=== PATIENT | male | born 1955 | race Caucasian/White ===

== ENCOUNTER 2018-03-06 17:23 | Inpatient (IN) | payer OTHER ==
[2018-03-06 18:32] LABS: #Basophils 0.1 thou/uL (0.0-0.2); #Eosinphils 0.2 thou/uL (0.0-0.7); #Lymphocytes 2.1 thou/uL (1.20-3.40); #Monocytes 0.7 thou/uL (0.11-0.59); #Neutrophils 7.8 thou/uL (1.40-6.50); %Basophils 0.5 % (0.0-1.0); %Eosinophils 2.1 % (0.0-10.0); %Lymphocytes 19.3 % (21.0-51.0); %Monocytes 6.3 % (0.0-10.0); %Neutrophils 71.9 % (42.0-75.0); Hemoglobin 15.7 g/dL (14.0-18.0); Mean Corpuscular HGB CONC 32.8 g/dL (32.0-36.0); Mean Corpuscular Volume 88.6 fl (80.0-94.0); Mean Platelet Volume 6.8 fL (7.4-10.4); Platelet Count 327 thou/uL (130-400); RBC Distribution Width 12.3 % (11.5-14.5); Red Blood Cell (RBC) Count 5.42 mill/uL (4.70-6.10); White Blood Cell (WBC) Count 10.9 thou/uL (4.8-10.8)
[2018-03-06 19:19] LABS: ALT (SGPT) 27 U/L (8-55); AST (SGOT) 18 U/L (5-34); Albumin 3.8 g/dL (3.4-4.8); Alkaline Phosphatase 109 U/L (40-150); Anion Gap 10 mmol/L (10-20); BUN (Urea Nitrogen) 27 mg/dL (8.4-25.7); Bilirubin, Total 0.4 mg/dL (0.2-1.2); Calc. Creatinine Clearance 0 mL/min (70-130); Calcium 9.3 mg/dL (7.8-10.44); Carbon Dioxide 25 mmol/L (23-31); Chloride 103 mmol/L (98-107); Estimated GFR-MDRD Greater than 90; Globulin 3.6 g/dL (2.4-3.5); Glucose 200 mg/dL (80-115); Potassium 4.2 mmol/L (3.5-5.1); Protein, Total 7.4 g/dL (5.8-8.1); Sodium 134 mmol/L (136-145)
[2018-03-06 19:23] LABS: Bilirubin Negative (Negative); Blood, Urine Negative (Negative); Clarity CLEAR (Clear); Glucose, Urine (Dipstick) 100 mg/dL (Negative); Leukocyte Small (Negative); Nitrite Negative (Negative); Protein, Urine (Dipstick) Negative (Neg-Trace); Specific Gravity, Urine 1.023 (1.002-1.036); Urobilinogen 0.2 mg/dL (0.2-1.0); pH, Urine 5.5 (5.0-9.0)
[2018-03-06 19:25] LABS: Bacteria/HPF None Seen HPF (None Seen); Hyaline Casts/LPF 0-3 HYALINE CAST LPF (0-3 Hyaline); Pathc Cast-AUWi Flag 0.58 (0-2.49); RBC/HPF 0-3 HPF (0-3); Squamous Epithelial 0-3 HPF (0-3)
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
[2018-03-06] MEDS ORDERED: cefTRIAXone\\ROCEPHIN 2 GM VIAL ONE (19:56)
[2018-03-06] MEDS ORDERED: Dextrose 50% Abboject 50 ML SYRINGE SLOW IVP PRN (21:28)
[2018-03-06] MEDS ORDERED: Zolpidem Tartrate 5 MG TAB PO PRN (21:28)
[2018-03-06] MEDS ORDERED: Ondansetron HCl/PF 4 MG/2 ML Vial IVP PRN (21:28)
[2018-03-06] MEDS ORDERED: Dextrose 5% in Water 1,000 ML IV PRN (21:28)
[2018-03-06] MEDS ORDERED: Loperamide HCl 2 MG CAP PO PRN (21:28)
[2018-03-06] MEDS ORDERED: Milk Of Magnesia 30 ML UDCUP PO PRN (21:28)
[2018-03-06] MEDS ORDERED: Senokot 8.6 MG TAB PO PRN (21:28)
[2018-03-06] MEDS ORDERED: HYDROcodone/Acetaminophen 5/325 mg Tablet PO PRN (21:28)
[2018-03-06] MEDS ORDERED: Acetaminophen 325 MG TAB PO PRN (21:28)
[2018-03-06] MEDS ORDERED: HumaLOG 300 UNITS/3 ML VIAL SC PRN (21:28)
[2018-03-06] MEDS ORDERED: Ondansetron ODT 4 MG TAB PO PRN (21:28)
[2018-03-06] MEDS ORDERED: Mag-Al 1200 mg/1200 mg/30 ML UDCUP PO PRN (21:28)
[2018-03-06] MEDS ORDERED: Morphine 4 MG/ML VIAL SLOW IVP PRN (21:28)
[2018-03-06 22:26] VITALS: BMI 34.5
[2018-03-06] MEDS: Piperacillin/Tazobactam 3.375 GM in Sodium Chloride 0.9% 100 ML IVPB SCH (22:50)
[2018-03-06] MEDS: Sodium Chloride 0.9% 1,000 ML IV SCH (22:50)
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
[2018-03-07 04:34] LABS: #Basophils 0.1 thou/uL (0.0-0.2); #Eosinphils 0.4 thou/uL (0.0-0.7); #Lymphocytes 1.8 thou/uL (1.20-3.40); #Monocytes 0.9 thou/uL (0.11-0.59); #Neutrophils 6.8 thou/uL (1.40-6.50); %Basophils 0.7 % (0.0-1.0); %Eosinophils 3.8 % (0.0-10.0); %Lymphocytes 18.4 % (21.0-51.0); %Monocytes 9.1 % (0.0-10.0); %Neutrophils 68.1 % (42.0-75.0); Hemoglobin 14.2 g/dL (14.0-18.0); Mean Corpuscular HGB CONC 32.7 g/dL (32.0-36.0); Mean Corpuscular Hemoglobin 29.2 pg (27.0-31.0); Mean Corpuscular Volume 89.4 fl (80.0-94.0); Mean Platelet Volume 6.6 fL (7.4-10.4); Platelet Count 310 thou/uL (130-400); RBC Distribution Width 12.4 % (11.5-14.5); Red Blood Cell (RBC) Count 4.86 mill/uL (4.70-6.10); White Blood Cell (WBC) Count 9.9 thou/uL (4.8-10.8)
[2018-03-07 04:38] LABS: Hemoglobin A1c 9.8 % (4.0-6.0)
[2018-03-07 04:40] LABS: Anion Gap 8 mmol/L (10-20); BUN (Urea Nitrogen) 22 mg/dL (8.4-25.7); Calc. Creatinine Clearance 156 mL/min (70-130); Calcium 8.8 mg/dL (7.8-10.44); Carbon Dioxide 25 mmol/L (23-31); Chloride 105 mmol/L (98-107); Estimated GFR-MDRD Greater than 90; Glucose 219 mg/dL (80-115); Potassium 3.8 mmol/L (3.5-5.1); Sodium 134 mmol/L (136-145)
[2018-03-07] MEDS: Piperacillin/Tazobactam 3.375 GM in Sodium Chloride 0.9% 100 ML IVPB SCH ×4 (05:15→23:26)
[2018-03-07] MEDS: Sodium Chloride 0.9% 1,000 ML IV SCH ×2 (07:26→17:34)
[2018-03-07] MEDS: Vancomycin HCl 1.25 GM in Sodium Chloride 0.9% 250 ML 250 ML IVPB SCH ×2 (08:09→15:49)
[2018-03-07] MEDS: Lisinopril 20 MG TAB PO SCH (09:22)
[2018-03-07] MEDS: Hydrochlorothiazide 25 MG TAB PO SCH (09:23)
[2018-03-07] MEDS: Amlodipine 10 MG TAB PO SCH (09:23)
[2018-03-07] MEDS: Famotidine 20 MG TAB PO SCH ×2 (09:24→20:47)
[2018-03-07] MEDS: Saccharomyces boulardii 250 MG CAP PO SCH (09:24)
[2018-03-07] MEDS: Amitriptyline HCl 25 MG TAB PO SCH (09:24)
[2018-03-07] MEDS: Enoxaparin Sodium 40 MG/0.4 ML SYRINGE SC SCH (09:24)
[2018-03-07] MEDS: Insulin Glargine 100 UNITS in Pre-Filled Syringe 1 EACH SC SCH (09:29)
--- NOTE | 2018-03-07 10:10 | PDOC.PN ---
- Subjective Encounter Start Date: 03/07/18 Encounter Start Time: 10:08 Patient seen and examined, no new issues or complaints. - Objective Resuscitation Status: Resuscitation Status FULL:Full Resuscitation Vital Signs & Weight: Vital Signs (12 hours) Temp Pulse Resp BP BP Pulse Ox 03/07/18 09:23 69 101/70 03/07/18 09:22 101/70 03/07/18 07:33 98.1 F 69 20 101/70 93 L 03/07/18 05:10 97.7 F 74 18 96/61 92 L 03/07/18 00:10 98.2 F 81 14 93/61 92 L 03/06/18 22:25 98.5 F 82 16 94 L Weight Weight 241 lb I&O: 03/06/18 03/07/18 03/08/18 06:59 06:59 06:59 Intake Total 1190 Balance 1190 Result Diagrams: 03/07/18 03:18 03/07/18 03:18 Additional Labs: Accuchecks 03/07/18 03/06/18 05:17 22:51 POC Glucose 191 H 180 H Phys Exam - Physical Examination Constitutional: NAD HEENT: PERRLA, moist MMs, sclera anicteric Neck: no nodes, no JVD, supple, full ROM Respiratory: no wheezing, no rales, no rhonchi Cardiovascular: RRR, no significant murmur, no rub Gastrointestinal: soft, non-tender, no distention, positive bowel sounds Musculoskeletal: no edema, pulses present right foot stage 3 ulcer Neurological: non-focal, normal sensation, moves all 4 limbs Psychiatric: normal affect, A&O x 3 Skin: no rash, normal turgor Dx/Plan (1) Diabetes mellitus Code(s): E11.9 - TYPE 2 DIABETES MELLITUS WITHOUT COMPLICATIONS Status: Acute (2) Diabetic foot ulcer Code(s): E11.621 - TYPE 2 DIABETES MELLITUS WITH FOOT ULCER; L97.509 - NON- PRESSURE CHRONIC ULCER OTH PRT UNSP FOOT W UNSP SEVERITY Status: Acute (3) Hypertension Code(s): I10 - ESSENTIAL (PRIMARY) HYPERTENSION Status: Acute (4) Hyperlipidemia Code(s): E78.5 - HYPERLIPIDEMIA, UNSPECIFIED Status: Acute - Plan * MRI of foot * surgical consult pending * wound care * cont abx for now * BP stable * insulin for sugars * case and paln d/w patient at length, he understands and agrees with this plan
--- NOTE | 2018-03-07 12:13 | RAD ---
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 MRI clearance. TECHNIQUE: AP and Forbes view. FINDINGS: There is no evidence of metallic foreign body in the orbits. IMPRESSION: Patient is cleared for MRI. POS: [facility]
--- NOTE | 2018-03-07 13:32 | MRI ---
MRI OF RIGHT FOOT PERFORMED WITHOUT CONTRAST ENHANCEMENT: Date: 03/07/18 HISTORY: Diabetic foot ulcer. Evaluation for osteomyelitis. No IV contrast was administered due to low GFR. COMPARISON: Plain film of the right foot performed 03/06/18. FINDINGS: Patient has undergone amputation at the level of the base of the fifth metatarsal. Ulcer is along the lateral margin of the foot near the base of the fifth metatarsal. There is some mild edema change, b ut no fluid collection seen in this region. I do not see any MR evidence for osteomyelitis. Marked de formity to the foot is seen with arthritic changes at the tarsal bone level and a pes cavus deformity to the foot. IMPRESSION: Ulcer near the base of the fifth metatarsal. No signs of underlying osteomyelitis. POS: [facility]
[2018-03-07] MEDS: HumaLOG 300 UNITS/3 ML VIAL SC PRN ×2 (14:00→17:34)
[2018-03-07 23:34] LABS: Vancomycin, Trough 21.4 ug/mL
[2018-03-08] MEDS: Vancomycin HCl 1 GM in Premix Bag 1 BAG IVPB SCH ×2 (01:16→08:20)
[2018-03-08] MEDS: Piperacillin/Tazobactam 3.375 GM in Sodium Chloride 0.9% 100 ML IVPB SCH ×2 (05:27→12:25)
[2018-03-08] MEDS: Sodium Chloride 0.9% 1,000 ML IV SCH ×2 (05:31→12:30)
[2018-03-08] MEDS: Enoxaparin Sodium 40 MG/0.4 ML SYRINGE SC SCH (08:20)
[2018-03-08] MEDS: Saccharomyces boulardii 250 MG CAP PO SCH (08:21)
[2018-03-08] MEDS: Famotidine 20 MG TAB PO SCH (08:21)
[2018-03-08] MEDS: Amitriptyline HCl 25 MG TAB PO SCH (08:22)
[2018-03-08] MEDS: Hydrochlorothiazide 25 MG TAB PO SCH (08:29)
[2018-03-08] MEDS: Amlodipine 10 MG TAB PO SCH (08:29)
[2018-03-08] MEDS: Lisinopril 20 MG TAB PO SCH (08:29)
[2018-03-08] MEDS: Insulin Glargine 100 UNITS in Pre-Filled Syringe 1 EACH SC SCH (09:18)
[2018-03-08 11:35] VITALS: BP 104/66; TEMP 97.9
[2018-03-08] MEDS: HumaLOG 300 UNITS/3 ML VIAL SC PRN (12:25)
--- NOTE | 2018-03-08 12:38 | PDOC.PN ---
- Subjective Encounter Start Date: 03/08/18 Encounter Start Time: 13:30 Subjective: Patient without complaint. No fever/chills/N/V. No pain. Has appointment -: with his shake splitter tomorrow who has arranged wound care. - Objective Resuscitation Status: Resuscitation Status FULL:Full Resuscitation MAR Reviewed: Yes Vital Signs & Weight: Vital Signs (12 hours) Temp Pulse Resp BP BP Pulse Ox 03/08/18 11:20 97.9 F 74 16 104/66 95 03/08/18 08:29 95/59 L Weight Weight 241 lb I&O: 03/07/18 03/08/18 03/09/18 06:59 06:59 06:59 Intake Total 1190 4300 Balance 1190 4300 Result Diagrams: 03/07/18 03:18 03/07/18 03:18 Additional Labs: Accuchecks 03/08/18 03/08/18 03/07/18 10:52 06:09 20:58 POC Glucose 258 H 153 H 110 03/07/18 15:17 POC Glucose 216 H Phys Exam - Physical Examination Constitutional: NAD HEENT: moist MMs Respiratory: no wheezing, no rales, no rhonchi Cardiovascular: RRR, no significant murmur Gastrointestinal: soft, non-tender, positive bowel sounds Musculoskeletal: no edema right foot with diabetic ulcer, dressing in place, no surrounding erythema at this time loss of feeling in lower extremities, bilateral foot drop Psychiatric: normal affect, A&O x 3 Dx/Plan (1) Diabetic foot ulcer Code(s): E11.621 - TYPE 2 DIABETES MELLITUS WITH FOOT ULCER; L97.509 - NON- PRESSURE CHRONIC ULCER OTH PRT UNSP FOOT W UNSP SEVERITY Status: Acute Comment: No osteomyelitis on MRI, blood cultures negative, WBC normal. Can d/c home and f/u with wound care and shake splitter as an outpatient. (2) Diabetes mellitus Code(s): E11.9 - TYPE 2 DIABETES MELLITUS WITHOUT COMPLICATIONS Status: Chronic (3) Hyperlipidemia Code(s): E78.5 - HYPERLIPIDEMIA, UNSPECIFIED Status: Chronic (4) Hypertension Code(s): I10 - ESSENTIAL (PRIMARY) HYPERTENSION Status: Chronic - Plan cont current plan of care, continue antibiotics Transition to oral antibiotics and d/c home, has f/u with shake splitter -: tomorrow and wound care through them * . - Discharge Day Encounter end time: 13:45
[2018-03-08] MEDS ORDERED: Clindamycin 150 MG CAP PO SCH (14:00)
[2018-03-08] MEDS ORDERED: Non-Formulary Item 1 EACH (Insulin Glargine,Hum.Rec.Anlog [Lantus Solostar] 90 UNIT) SQ SCH (21:00)
[2018-03-08] MEDS ORDERED: Insulin Glargine 90 UNITS in Pre-Filled Syringe 1 EACH SC SCH (21:00)
--- NOTE | 2018-03-08 22:46 | DIS ---
PRIMARY CARE PHYSICIAN: Saul Martinez MD REASON FOR ADMISSION: Diabetic foot ulcer with concern for osteomyelitis. DISCHARGE DIAGNOSES: 1. Diabetic foot ulcer, infected. 2. Diabetes mellitus type 2. 3. Hyperlipidemia. 4. Hypertension. 5. Peripheral neuropathy with bilateral foot drop. 6. Depression. PROCEDURES: 1. X-ray of the foot showing extensive posttraumatic or infectious changes in the right foot and an area of soft tissue ulceration along the lateral mid right foot. 2. Forbes' view x-ray confirming no metallic foreign objects in the orbits before MRI. 3. MRI of the right foot showing an ulcer near the base of the fifth metatarsal, but no signs of und erlying osteomyelitis or abscess. CONSULTATIONS: None. LABORATORY DATA: White blood cell count of 9.9 at discharge. Microbiology from outside facility [facility]a wing bacteria sensitive to second and third-generation cephalosporins, but resistant to fluoroquinolo john. Clindamycin is not mentioned in the resistance profile. SUMMARY OF HOSPITAL COURSE: This is a 62-year-old male with underlying history of diabetes mellitus type 2 and peripheral neuropathy, and foot drop, who has chronic ulcer on his right foot, but that mortensen d significantly improved and almost healed. However, he became very depressed with of his and for the last 6 months had stopped taking care of himself and the ulcer got a lot worse. He is o n a depression medication now and doing better and has been following up on his foot now. He saw his hotel maintenance worker last week, had a culture done, which grew bacteria and he was instructed to go to the [facility] room for possible infected diabetic ulcer. The patient was admitted to the hospital. He had wound care done in the hospital. He was initially put on Zosyn and vancomycin. Culture results from that facility were eventually obtained, reviewed; see above. The patient had an MRI done, which mona wed no evidence of osteomyelitis or underlying fluid collection. He did not have any evidence of ext ensive cellulitis or severe infection on exam either, so he is being put on Omnicef to recover from h is wound and is being discharged home. The patient already has an appointment scheduled with his pod iatrist tomorrow. DISCHARGE MANAGEMENT: Discharged home. Follow up with Podiatry tomorrow as scheduled and with Wound Care as directed by the hotel maintenance worker. ACTIVITY: As tolerated. DIET: Diabetic diet. DISCHARGE MEDICATIONS: 1. Omnicef 300 mg twice a day for 14 days, 28 caps dispensed. 2. Continue home medications, amitriptyline 25 mg daily. 3. Amlodipine 10 mg daily. 4. Lisinopril/hydrochlorothiazide 20/12.5 mg daily. 5. Sertraline 25 mg daily. 6. Lantus 90 units each night.
== END 2018-03-08 15:00 | disposition home or self-care (01) | DRG 638 ==
LOC: ERS 17:23 → SURG A 20:56
PROVIDERS: ADMIT Family Medicine; ATTEND Family Medicine
DX: E11.621 Type 2 diabetes mellitus with foot ulcer (principal); M86.9 Osteomyelitis, unspecified; E11.69 Type 2 diabetes mellitus with other specified complication; Z79.899 Other long term (current) drug therapy; Z79.4 Long term (current) use of insulin; F32.9 Major depressive disorder, single episode, unspecified; E78.5 Hyperlipidemia, unspecified; F41.9 Anxiety disorder, unspecified; I10 Essential (primary) hypertension; E11.40 Type 2 diabetes mellitus with diabetic neuropathy, unspecified; M21.372 Foot drop, left foot; M21.371 Foot drop, right foot
CPT/HCPCS: 36415; 36416; 70210; 80048; 80053; 80202; 81003; 81015; 83036; 85025; 87040; 87086; 90471; 90732; 96365; G0009; J0696; J1650; J2543; J3370; J7050

== ENCOUNTER 2018-05-24 15:36 | Inpatient (IN) | payer OTHER ==
[2018-05-24 16:33] LABS: Hemoglobin 14.7 g/dL (14.0-18.0); Mean Corpuscular HGB CONC 32.8 g/dL (32.0-36.0); Mean Corpuscular Hemoglobin 29.4 pg (27.0-31.0); Mean Corpuscular Volume 89.5 fL (78.0-98.0); RBC Distribution Width 12.6 % (11.5-14.5); Red Blood Cell (RBC) Count 5.01 mill/uL (4.70-6.10); White Blood Cell (WBC) Count 8.9 thou/uL (4.8-10.8)
[2018-05-24 16:35] LABS: #Basophils 0.1 thou/uL (0.0-0.2); #Eosinphils 0.2 thou/uL (0.0-0.7); #Lymphocytes 1.6 thou/uL (1.20-3.40); #Monocytes 0.5 thou/uL (0.11-0.59); #Neutrophils 5.6 thou/uL (1.40-6.50); %Basophils 0.7 % (0.0-1.0); %Eosinophils 2.9 % (0.0-10.0); %Lymphocytes 20.2 % (21.0-51.0); %Monocytes 6.1 % (0.0-10.0); Mean Platelet Volume 6.7 fL (7.4-10.4); Platelet Count 200 thou/uL (130-400)
[2018-05-24 16:44] LABS: ALT (SGPT) 27 U/L (8-55); AST (SGOT) 24 U/L (5-34); Albumin 3.6 g/dL (3.4-4.8); Alkaline Phosphatase 129 U/L (40-150); Anion Gap 16 mmol/L (10-20); BUN (Urea Nitrogen) 15 mg/dL (8.4-25.7); Bilirubin, Total 0.3 mg/dL (0.2-1.2); CRP (Inflammatory) 3.38 mg/dL (= or < 0.5); Calc. Creatinine Clearance 0 mL/min (70-130); Calcium 9.1 mg/dL (7.8-10.44); Carbon Dioxide 19 mmol/L (23-31); Chloride 103 mmol/L (98-107); Estimated GFR-MDRD 90; Globulin 3.5 g/dL (2.4-3.5); Glucose 380 mg/dL (80-115); Potassium 4.9 mmol/L (3.5-5.1); Protein, Total 7.1 g/dL (5.8-8.1); Sodium 133 mmol/L (136-145)
--- NOTE | 2018-05-24 20:51 | RAD ---
RIGHT FOOT THREE VIEWS: INDICATIONS: Right foot wound. COMPARISON: Prior exam dated 03/06/2018. IMPRESSION: The examination does not appear appreciably changed from the comparison. Prior bone loss of the mid to distal aspect of the right fifth metatarsal is similar appearing. Hypertrophic changes along the base of the fifth metatarsal, as well as the fourth metatarsal, are similar appearing. Scattered deg enerative change is similar appearing. A soft tissue wound overlying the lateral aspect of the mid f oot is similar appearing. Soft tissue swelling of the right foot and right ankle is similar kolton lee. POS: [facility]
[2018-05-25 00:29] VITALS: BMI 35.4
[2018-05-25] MEDS ORDERED: Ondansetron HCl/PF 4 MG/2 ML Vial IVP PRN ×2 (03:58→07:35)
[2018-05-25] MEDS ORDERED: Acetaminophen 325 MG TAB PO PRN ×2 (03:58→07:35)
[2018-05-25] MEDS ORDERED: Ondansetron ODT 4 MG TAB SL PRN (03:58)
[2018-05-25] MEDS ORDERED: Sodium Chloride 0.9% 1,000 ML IV SCH (04:00)
[2018-05-25] MEDS ORDERED: Gadobenate Dimeglumine 529 MG/1 ML (20ML VIAL) ONE (06:50)
[2018-05-25] MEDS ORDERED: Senokot 8.6 MG TAB PO PRN (07:35)
[2018-05-25] MEDS ORDERED: hydrALAZINE 20 MG/ML VIAL SLOW IVP PRN (07:35)
[2018-05-25] MEDS ORDERED: Chloraseptic Spray 180 ml Bottle PO PRN (07:35)
[2018-05-25] MEDS ORDERED: Dextrose 5% in Water 1,000 ML IV PRN (07:35)
[2018-05-25] MEDS ORDERED: Zolpidem Tartrate 5 MG TAB PO PRN (07:35)
[2018-05-25] MEDS ORDERED: HumaLOG 300 UNITS/3 ML VIAL SC PRN (07:35)
[2018-05-25] MEDS ORDERED: Artificial Tears 18 DROP/0.9 ML EA EYE PRN (07:35)
[2018-05-25] MEDS ORDERED: HYDROcodone/Acetaminophen 10/325 mg Tablet PO PRN (07:35)
[2018-05-25] MEDS ORDERED: Dextrose 50% Abboject 50 ML SYRINGE SLOW IVP PRN (07:35)
[2018-05-25] MEDS ORDERED: Milk Of Magnesia 30 ML UDCUP PO PRN (07:35)
[2018-05-25] MEDS ORDERED: Loratadine 10 MG TAB PO PRN (07:35)
[2018-05-25] MEDS ORDERED: Ondansetron ODT 4 MG TAB PO PRN (07:35)
[2018-05-25] MEDS ORDERED: Diabetic Tussin 200 MG/10 ML UDCUP PO PRN (07:35)
[2018-05-25] MEDS ORDERED: Eucerin (Mineral Oil/Petrolatum,White) 30 gm Jar TOP PRN (07:35)
[2018-05-25] MEDS ORDERED: Sodium Chloride 0.65% Nasal 44 ML BOT EA NARE PRN (07:35)
[2018-05-25] MEDS ORDERED: Mag-Al 1200 mg/1200 mg/30 ML UDCUP PO PRN (07:35)
[2018-05-25] MEDS: Enoxaparin Sodium 40 MG/0.4 ML SYRINGE SC SCH (09:08)
[2018-05-25] MEDS: Saccharomyces boulardii 250 MG CAP PO SCH (09:08)
[2018-05-25] MEDS: Famotidine 20 MG TAB PO SCH ×2 (09:08→21:50)
[2018-05-25] MEDS: Amlodipine 10 MG TAB PO SCH (09:08)
[2018-05-25] MEDS: Vancomycin HCl 1.75 GM in Sodium Chloride 0.9% 500 ML IVPB SCH ×2 (09:09→21:51)
[2018-05-25] MEDS: Lisinopril/Hydrochlorothiazide 20 mg/12.5 mg Tablet PO SCH (09:09)
[2018-05-25] MEDS: HumaLOG 300 UNITS/3 ML VIAL SC PRN ×2 (11:43→17:21)
[2018-05-25] MEDS: Piperacillin/Tazobactam 3.375 GM in Sodium Chloride 0.9% 100 ML IVPB SCH ×2 (11:44→17:21)
[2018-05-25 12:55] LABS: Bilirubin Negative (Negative); Blood, Urine Negative (Negative); Clarity CLEAR (Clear); Glucose, Urine (Dipstick) >=1000 mg/dL (Negative); Leukocyte Negative (Negative); Nitrite Negative (Negative); Protein, Urine (Dipstick) Negative (Neg-Trace); Specific Gravity, Urine 1.019 (1.002-1.036)
[2018-05-25 12:57] LABS: Bacteria/HPF None Seen HPF (None Seen); Hyaline Casts/LPF 0-3 HYALINE CAST LPF (0-3 Hyaline); Pathc Cast-AUWi Flag 0.14 (0-2.49); RBC/HPF 0-3 HPF (0-3); Squamous Epithelial None Seen HPF (0-3); WBC/HPF 0-3 HPF (0-3)
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
--- NOTE | 2018-05-25 18:17 | MRI ---
MRI OF THE RIGHT FOOT WITH AND WITHOUT CONTRAST: 05/25/18 INDICATION: Concern for osteomyelitis. COMPARISON: Prior MR examination dated 03/07/18, radiographs dated 05/24/18. FINDINGS: 20 ML of Multihance utilized. There is abnormal signal intensity and enhancement involving the base of the fifth metatarsal consist ent with osteomyelitis. There is a superficial wound contacting the base of the fifth metatarsal on t he plantar lateral aspect of the right midfoot measuring 1.8 x 1.5 x 2.3 cm. There is bone loss invol ving the distal aspect of the fifth metatarsal. No additional marrow signal abnormality is evident. L isfranc ligament is intact. There is cellulitis of the dorsal foot. No drainable fluid collection is evident. IMPRESSION: Deep plantar and lateral based wound contacting the base of the fifth metatarsal with changes of oste omyelitis involving the mid proximal aspect of the fifth metatarsal. The distal aspect of fifth metat arsal is no longer present and may reflect destructive osteolysis from prior infection or surgery. POS: LIZETH
[2018-05-25] MEDS ORDERED: INSULIN GLARGINE SQ SCH (21:00)
[2018-05-25] MEDS: PRE FILLED SC SCH (21:51)
[2018-05-25] MEDS: INSULIN GLARGINE SC SCH (21:51)
[2018-05-25] MEDS: Amitriptyline HCl 25 MG TAB PO SCH (21:51)
--- NOTE | 2018-05-25 22:08 | HP ---
A 63-year-old male patient lives in [place], recently , lives alone. The patient has a chronic right foot problem having had prior surgery, removing a portion of the metatarsal. He has had a chr onic wound over this foot with a neuropathic plantar ulcer. This foot became cellulitic, edematous a nd he reported to the emergency room. Plain x-rays revealed changes similar in comparison to 018. When probed the wound, there is a communication to the metatarsal. The patient is obese, 5 fee t 10, 247 pounds, 35 BMI. He has insulin-dependent diabetes mellitus. ALLERGIES: None. TOBACCO: None. ALCOHOL: None. MEDICATIONS: Amlodipine 10 mg a day, amitriptyline 25 mg at bedtime, lisinopril/hydrochlorothiazide 20/12.5 mg a day, Cipro 500 b.i.d., sertraline 25 mg daily, insulin p.m. 92 units; in the hospital, alicia brothers is on Zosyn and vancomycin. PAST SURGICAL HISTORY: Surgery on his right foot about a year ago. PAST MEDICAL HISTORY: Diabetes mellitus, obesity, hypertension. REVIEW OF SYSTEMS: Ten point noncontributory. PHYSICAL EXAMINATION: VITAL SIGNS: 5 feet 10 inches, 247 pounds, 35 BMI, 98.5, 83, 157/91. LUNGS: Clear to auscultation. CARDIAC: Regular rate and rhythm without murmur or gallop. ABDOMEN: Soft, obese. EXTREMITIES: Palpable femoral, popliteal pedal pulses. Right foot reveals that there is cellulitis, edema, infection in the lateral foot, there is a neuropathic ulcer proximal plantar lateral. This i s overlying the fifth metatarsal. When probing the wound, I can appreciate that the wound communicat es with the metatarsal. He has palpable pedal pulses. He has a scar from Podiatry surgery over his right foot. Neurologically intact. LABORATORY DATA: White count 8, hemoglobin 14. Basic metabolic profile unremarkable. Glucose is 24 0-380, BUN 15, creatinine 0.86. ASSESSMENT AND PLAN: Suspect osteomyelitis, right foot. This is chronic. He has had previous surge ry and is open wound communicates to the metatarsal. I have consulted Dr. Mario. Anticipating the p atient will need a PICC line and prolonged intravenous antibiotics. We will attempt to salvage his f oot, although with a proximal wound. Risk of limb loss, below knee amputation is great. He has a go od blood supply by physical exam with palpable pedal pulses. Would plan MRI scan to determine the ex tent of the problem and then plan tomorrow incision and drainage of the wound, debridement is indicat ed, removed the right fifth toe and adjacent toes as indicated. The infection, most likely has evolv ed to involve the cuboid bone and smaller ankle bones and prognosis is poor.
[2018-05-26 04:50] LABS: #Basophils 0.1 thou/uL (0.0-0.2); #Eosinphils 0.4 thou/uL (0.0-0.7); #Lymphocytes 1.5 thou/uL (1.20-3.40); #Monocytes 0.6 thou/uL (0.11-0.59); #Neutrophils 5.1 thou/uL (1.40-6.50); %Basophils 0.8 % (0.0-1.0); %Eosinophils 5.5 % (0.0-10.0); %Lymphocytes 19.2 % (21.0-51.0); %Neutrophils 66.5 % (42.0-75.0); Hemoglobin 14.4 g/dL (14.0-18.0); Mean Corpuscular HGB CONC 33.3 g/dL (32.0-36.0); Mean Corpuscular Hemoglobin 29.7 pg (27.0-31.0); Mean Corpuscular Volume 89.1 fL (78.0-98.0); Platelet Count 264 thou/uL (130-400); RBC Distribution Width 12.6 % (11.5-14.5); Red Blood Cell (RBC) Count 4.86 mill/uL (4.70-6.10); White Blood Cell (WBC) Count 7.7 thou/uL (4.8-10.8)
[2018-05-26 04:50] LABS: Anion Gap 11 mmol/L (10-20); BUN (Urea Nitrogen) 8 mg/dL (8.4-25.7); Calc. Creatinine Clearance 188 mL/min (70-130); Carbon Dioxide 23 mmol/L (23-31); Chloride 105 mmol/L (98-107); Estimated GFR-MDRD Greater than 90; Glucose 218 mg/dL (80-115); Potassium 4.4 mmol/L (3.5-5.1); Sodium 135 mmol/L (136-145)
[2018-05-26] MEDS: Piperacillin/Tazobactam 3.375 GM in Sodium Chloride 0.9% 100 ML IVPB SCH ×5 (05:41→23:50)
[2018-05-26] MEDS ORDERED: Sodium Chloride 0.9% 1,000 ML IV SCH (08:00)
[2018-05-26] MEDS: Vancomycin HCl 1.75 GM in Sodium Chloride 0.9% 500 ML IVPB SCH ×2 (08:15→21:00)
[2018-05-26] MEDS: Amlodipine 10 MG TAB PO SCH (08:17)
[2018-05-26] MEDS: Lisinopril/Hydrochlorothiazide 20 mg/12.5 mg Tablet PO SCH (08:17)
[2018-05-26] MEDS: Saccharomyces boulardii 250 MG CAP PO SCH (08:17)
[2018-05-26] MEDS: Famotidine 20 MG TAB PO SCH ×2 (08:17→20:59)
[2018-05-26] MEDS: Enoxaparin Sodium 40 MG/0.4 ML SYRINGE SC SCH (08:18)
--- NOTE | 2018-05-26 10:12 | PRG ---
DATE OF SERVICE: 05/26/2018 HISTORY OF PRESENT ILLNESS: MRI revealed extensive osteomyelitis of the right 5th metatarsal, most o f the distal metatarsal has been eaten away with osteomyelitis. The proximal metatarsal is markedly abnormal with osteomyelitis. This is the source of his cellulitis. I have recommended that we proce ed with a debridement and amputation of the right fifth toe and metatarsal and adjacent metatarsal to es as indicated. Questions answered. He will have a wound VAC. He lives in [place] and that he will report to outpatient [facility] probably Mondays and for wound VAC care. He has a pos toperative shoe for use when he is out of bed. He should follow up in my office in 2-3 weeks postope ratively. The patient will need oral antibiotics, most likely for 2 weeks post-discharge unless of c ourse operative findings suggest intravenous antibiotics might be necessary. Dr. Mario has been cons ulted. Plan operative intervention today after which he can eat.
--- NOTE | 2018-05-26 11:55 | PDOC.PN ---
- Subjective Encounter Start Date: 05/26/18 Encounter Start Time: 09:30 -: old records requested/rev Patient seen and examined. No new complaints. No overnight events - Objective Resuscitation Status: Resuscitation Status FULL:Full Resuscitation MAR Reviewed: Yes Vital Signs & Weight: Vital Signs (12 hours) Temp Pulse Resp BP BP BP Pulse Ox 05/26/18 11:46 97.7 F 83 22 H 145/86 H 96 05/26/18 08:17 78 131/65 05/26/18 08:00 97.8 F 72 18 112/70 05/26/18 00:00 97.7 F 85 20 131/77 92 L Weight Admit Weight 247 lb 3 oz Weight 247 lb 3 oz I&O: 05/25/18 05/26/18 05/27/18 06:59 06:59 06:59 Intake Total 1000 1120 Balance 1000 1120 Result Diagrams: 05/26/18 03:27 05/26/18 03:30 Additional Labs: Accuchecks 05/26/18 05/25/18 05/25/18 04:30 19:44 15:59 POC Glucose 226 H 176 H 186 H 05/25/18 11:42 POC Glucose 272 H Radiology Reviewed by me: Yes (MRI lower extrimity showed osteomyelitis) Phys Exam - Physical Examination Constitutional: NAD HEENT: PERRLA, moist MMs, sclera anicteric Neck: no JVD, supple Respiratory: no wheezing, no rales, no rhonchi Cardiovascular: RRR, no significant murmur, no rub Gastrointestinal: soft, non-tender, no distention, positive bowel sounds right foot with ulcer with dressing Neurological: non-focal, normal sensation, moves all 4 limbs Psychiatric: normal affect, A&O x 3 Skin: no rash, normal turgor Dx/Plan (1) Acute osteomyelitis of metatarsal bone of right foot Code(s): M86.171 - OTHER ACUTE OSTEOMYELITIS, RIGHT ANKLE AND FOOT Status: Acute Comment: 5th toe metatarsal (2) Diabetes type 2, uncontrolled Code(s): E11.65 - TYPE 2 DIABETES MELLITUS WITH HYPERGLYCEMIA Status: Chronic (3) Diabetic foot ulcer Code(s): E11.621 - TYPE 2 DIABETES MELLITUS WITH FOOT ULCER; L97.509 - NON- PRESSURE CHRONIC ULCER OTH PRT UNSP FOOT W UNSP SEVERITY Status: Acute Comment: No osteomyelitis on MRI, blood cultures negative, WBC normal. Can d/c home and f/u with wound care and it project lead as an outpatient. 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 Review of Systems - Review of Systems Eyes: negative: Pain, Vision Change, Conjunctivae Inflammation, Eyelid Inflammation, Redness, Other ENT: negative: Ear Pain, Ear Discharge, Nose Pain, Nose Discharge, Nose Congestion, Mouth Pain, Mouth Swelling, Throat Pain, Throat Swelling, Other Respiratory: negative: Cough, Dry, Shortness of Breath, Hemoptysis, SOB with Excertion, Pleuritic Pain, Sputum, Wheezing Cardiovascular: negative: chest pain, palpitations, orthopnea, paroxysmal nocturnal dyspnea, edema, light headedness, other Gastrointestinal: negative: Nausea, Vomiting, Abdominal Pain, Diarrhea, Constipation, Melena, Hematochezia, Other Genitourinary: negative: Dysuria, Frequency, Incontinence, Hematuria, Retention , Other Musculoskeletal: Foot Pain. negative: Neck Pain, Shoulder Pain, Arm Pain, Back Pain, Hand Pain, Leg Pain, Other Skin: negative: Rash, Lesions, Matt, Bruising, Other - Medications/Allergies Allergies/Adverse Reactions: Allergies Allergy/AdvReac Type Severity Reaction Status Date / Time No Known Drug Allergies Allergy Verified 03/06/18 22:28 Medications: Current Medications Acetaminophen (Tylenol) 650 mg PO Q4H PRN PRN Reason: Headache/Fever or Pain Hydrocodone Bitart/Acetaminophen ([place] 10/325) 1 tab PO Q4H PRN PRN Reason: Moderate Pain (4-6) Al Hydroxide/Mg Hydroxide (Maalox) 30 ml PO Q6H PRN PRN Reason: Heartburn or Indigestion Amitriptyline HCl (Elavil) 25 mg PO [facility] Last Admin: 05/25/18 21:51 Dose: 25 mg Amlodipine Besylate (Norvasc) 10 mg PO DAILY [facility] Last Admin: 05/26/18 08:17 Dose: 10 mg Artificial Tears (Tears Naturale) 0 drop EA EYE PRN PRN PRN Reason: Dry Eyes Dextrose/Water (Dextrose 50%) 25 gm SLOW IVP PRN PRN PRN Reason: Hypoglycemia Enoxaparin Sodium (Lovenox) 40 mg SC 0900 [facility] Last Admin: 05/26/18 08:18 Dose: 40 mg Famotidine (Pepcid) 20 mg PO BID [facility] Last Admin: 05/26/18 08:17 Dose: 20 mg Glucagon (Glucagon) 1 mg IM PRN PRN PRN Reason: Hypoglycemia Guaifenesin (Robitussin Sf) 200 mg PO Q4H PRN PRN Reason: Cough Lisinopril/HCTZ (Prinizide 20-12.5) 1 tab PO DAILY [facility] Last Admin: 05/26/18 08:17 Dose: 1 tab Hydralazine HCl (Apresoline) 10 mg SLOW IVP Q4H PRN PRN Reason: Systolic BP > 180 Dextrose/Water (D5w) 1,000 mls @ 0 mls/hr IV .Q0M PRN PRN Reason: Hypoglycemia Piperacillin Sod/Tazobactam (Sod 3.375 gm/ Sodium Chloride) 100 mls @ 200 mls/ hr IVPB Q6HR [facility] Last Admin: 05/26/18 05:41 Dose: 100 mls Insulin Glargine 92 units/ (Miscellaneous Medication) 0.92 mls @ 0 mls/hr SC [facility] Last Admin: 05/25/18 21:51 Dose: 0.92 mls Vancomycin HCl 1.75 gm/ Sodium (Chloride) 500 mls @ 250 mls/hr IVPB Q12HR [facility] Last Admin: 05/26/18 08:15 Dose: 500 mls Sodium Chloride (Normal Saline 0.9%) 1,000 mls @ 100 mls/hr IV .Q10H [facility] Last Admin: 05/26/18 08:15 Dose: 1,000 mls Insulin Human Lispro (Humalog) 0 units SC .MODERATE SLIDING SC PRN PRN Reason: Moderate Correctional Scale Last Admin: 05/25/18 17:21 Dose: 2 unit Insulin Human Lispro (Humalog) 0 units SC .BEDTIME SLIDING SC PRN PRN Reason: Bedtime Correctional Scale Loperamide HCl (Imodium) 2 mg PO PRN PRN PRN Reason: Diarrhea/Loose Stools Loratadine (Claritin) 10 mg PO DAILYPRN PRN PRN Reason: Sinus Symptoms Magnesium Hydroxide (Milk Of Magnesium) 30 ml PO DAILYPRN PRN PRN Reason: Constipation Mineral Oil/White Petrolatum (Eucerin Cream) 0 gm TOP BIDPRN PRN PRN Reason: Dry Skin Miscellaneous Medication (Pharmacy To Dose) 1 each IVPB ASDIR [facility] Morphine Sulfate (Morphine) 2 mg SLOW IVP Q4H PRN PRN Reason: Pain Ondansetron HCl (Zofran Odt) 4 mg PO Q6H PRN PRN Reason: Nausea/Vomiting Ondansetron HCl (Zofran) 4 mg IVP Q6H PRN PRN Reason: Nausea/Vomiting Phenol (Chloraseptic [place] 180 Ml Bot) 0 ml PO PRN PRN PRN Reason: Sore Throat Saccharomyces Boulardii (Florastor) 250 mg PO DAILY [facility] Last Admin: 05/26/18 08:17 Dose: 250 mg Senna (Senokot) 2 tab PO HSPRN PRN PRN Reason: Constipation Sertraline HCl (Zoloft) 25 mg PO DAILY [facility] Last Admin: 05/26/18 08:17 Dose: 25 mg Sodium Chloride ([place] Nasal [place] 0.65%) 0 ml EA NARE QIDPRN PRN PRN Reason: Nasal Congestion Sodium Chloride (Flush - Normal Saline) 10 ml IVF Q12HR [facility] Last Admin: 05/26/18 08:18 Dose: 10 ml Sodium Chloride (Flush - Normal Saline) 10 ml IVF PRN PRN PRN Reason: Saline Flush Zolpidem Tartrate (Ambien) 5 mg PO HSPRN PRN PRN Reason: Insomnia
[2018-05-26] MEDS ORDERED: ePHEDrine/0.9% NaCl/PF SYRINGE 50 mg/10 ml ONE (13:28)
[2018-05-26] MEDS ORDERED: PROPOFOL 200 MG/20 ML VIAL ONE (13:28)
[2018-05-26] MEDS ORDERED: PHENYLEPHRINE-NS 100 MCG/ML 10 ML SYRINGE ONE (13:28)
[2018-05-26] MEDS ORDERED: Insulin Regular 300 UNITS/3 ML VIAL ONE (16:53)
[2018-05-26] MEDS ORDERED: Fentanyl 100 MCG/2 ML VIAL ONE (16:54)
[2018-05-26] MEDS ORDERED: Lidocaine 2% Jelly 5 ML TUBE ONE (16:54)
[2018-05-26] MEDS ORDERED: Midazolam HCl 2 mg/2 ml Vial ONE (16:54)
[2018-05-26] MEDS ORDERED: Bupivacaine PF 0.5% 30 ML VIAL ONE (16:59)
[2018-05-26] MEDS ORDERED: Propofol 500 MG/50 ML VIAL ONE (17:05)
[2018-05-26] MEDS ORDERED: traMADol HCl 50 MG TAB PO PRN ×2 (17:06)
[2018-05-26] MEDS ORDERED: Acetaminophen 500 MG TAB PO PRN (17:06)
[2018-05-26] MEDS ORDERED: Promethazine HCl 25 MG/ML VIAL IM PRN (18:18)
[2018-05-26] MEDS ORDERED: Promethazine HCl 25 MG/ML VIAL SLOW IVP PRN (18:18)
[2018-05-26] MEDS ORDERED: Ondansetron HCl/PF 4 MG/2 ML Vial IVP PRN (18:18)
[2018-05-26 20:32] LABS: Vancomycin, Trough 18.3 ug/mL
[2018-05-26] MEDS: PRE FILLED SC SCH (20:59)
[2018-05-26] MEDS: INSULIN GLARGINE SC SCH (20:59)
[2018-05-26] MEDS: Amitriptyline HCl 25 MG TAB PO SCH (20:59)
--- NOTE | 2018-05-27 01:49 | OP ---
DATE OF OPERATION: 05/26/2018 PREOPERATIVE DIAGNOSES: Diabetic infection of right foot with osteomyelitis of the cuboid and metata rsal fifth (prior history of podiatry metatarsal segmental resection with preservation of the fifth t oe and the segment of the metatarsal). PROCEDURE: Amputation of the right fifth toe and metatarsal debridement of the cuboid and metatarsal resection. SURGEON: Dr. Cortes Tillman. ANESTHESIA: TIVA. PROCEDURE IN DETAIL: Patient was taken to the operating room with IV sedation, right lower extremity was prepared with ChloraPrep, draped in routine fashion. Incision was made for amputation of the ri ght small toe and metatarsal with a racquet type incision preserving as much skin as possible. Incis ion was carried down excising the neuropathic ulcer. Metatarsal resected from the soft tissues proxi magdalene. Bleeding controlled with cautery. The cuboid bone debrided with the rongeurs back to healthy bone. Good healthy tissue noted. No purulent material noted. Wound irrigated. Gauze dressing wili lied for VAC application tomorrow. I expect patient will need intravenous antibiotics for a prolong period of time.
[2018-05-27] MEDS: Piperacillin/Tazobactam 3.375 GM in Sodium Chloride 0.9% 100 ML IVPB SCH ×3 (04:41→18:18)
[2018-05-27] MEDS: Vancomycin HCl 1.75 GM in Sodium Chloride 0.9% 500 ML IVPB SCH ×2 (08:03→20:27)
[2018-05-27] MEDS: Enoxaparin Sodium 40 MG/0.4 ML SYRINGE SC SCH (08:03)
[2018-05-27] MEDS: Saccharomyces boulardii 250 MG CAP PO SCH (08:04)
[2018-05-27] MEDS: Famotidine 20 MG TAB PO SCH ×2 (08:04→20:25)
[2018-05-27] MEDS: Amlodipine 10 MG TAB PO SCH (08:07)
[2018-05-27] MEDS: Lisinopril/Hydrochlorothiazide 20 mg/12.5 mg Tablet PO SCH (08:09)
--- NOTE | 2018-05-27 11:58 | PDOC.PN ---
- Subjective Encounter Start Date: 05/27/18 Encounter Start Time: 07:45 Patient seen and examined. No new complaints. No overnight events - Objective Resuscitation Status: Resuscitation Status FULL:Full Resuscitation MAR Reviewed: Yes Vital Signs & Weight: Vital Signs (12 hours) Temp Pulse Resp BP BP Pulse Ox 05/27/18 08:09 80 132/80 05/27/18 08:07 80 132/80 05/27/18 08:00 98.2 F 82 18 132/80 92 L Weight Admit Weight 247 lb 3 oz Weight 247 lb 3 oz I&O: 05/26/18 05/27/18 05/28/18 06:59 06:59 06:59 Intake Total 1120 700 Output Total 1450 Balance 1120 -750 Result Diagrams: 05/26/18 03:27 05/26/18 03:30 Additional Labs: Accuchecks 05/27/18 05/26/18 05/26/18 04:14 19:48 17:17 POC Glucose 138 H 164 H 157 H 05/26/18 05/26/18 16:49 11:49 POC Glucose 221 H 184 H Phys Exam - Physical Examination Constitutional: NAD HEENT: PERRLA, moist MMs, sclera anicteric Neck: no JVD, supple Respiratory: no wheezing, no rales, no rhonchi Cardiovascular: RRR, no significant murmur, no rub Gastrointestinal: soft, non-tender, no distention, positive bowel sounds Musculoskeletal: no edema, pulses present right foot with dressing Neurological: non-focal, normal sensation, moves all 4 limbs Psychiatric: normal affect, A&O x 3 Skin: no rash, normal turgor Dx/Plan (1) Acute osteomyelitis of metatarsal bone of right foot Code(s): M86.171 - OTHER ACUTE OSTEOMYELITIS, RIGHT ANKLE AND FOOT Status: Acute Comment: 5th toe metatarsal (2) Diabetes type 2, uncontrolled Code(s): E11.65 - TYPE 2 DIABETES MELLITUS WITH HYPERGLYCEMIA Status: Chronic (3) Diabetic foot ulcer Code(s): E11.621 - TYPE 2 DIABETES MELLITUS WITH FOOT ULCER; L97.509 - NON- PRESSURE CHRONIC ULCER OTH PRT UNSP FOOT W UNSP SEVERITY Status: Acute Comment: No osteomyelitis on MRI, blood cultures negative, WBC normal. 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, aids social worker * continue wound care arrangement outpt * await ID input to decide about IV vs oral antibiotics on discharge * so far culture is negative * wound care * pain controlled * tomorrow dr brothers will evaluate wound * medication reviewed as below * symptomatic treatment Review of Systems - Review of Systems Eyes: negative: Pain, Vision Change, Conjunctivae Inflammation, Eyelid Inflammation, Redness, Other ENT: negative: Ear Pain, Ear Discharge, Nose Pain, Nose Discharge, Nose Congestion, Mouth Pain, Mouth Swelling, Throat Pain, Throat Swelling, Other Respiratory: negative: Cough, Dry, Shortness of Breath, Hemoptysis, SOB with Excertion, Pleuritic Pain, Sputum, Wheezing Cardiovascular: negative: chest pain, palpitations, orthopnea, paroxysmal nocturnal dyspnea, edema, light headedness, other Gastrointestinal: negative: Nausea, Vomiting, Abdominal Pain, Diarrhea, Constipation, Melena, Hematochezia, Other Genitourinary: negative: Dysuria, Frequency, Incontinence, Hematuria, Retention , Other Musculoskeletal: negative: Neck Pain, Shoulder Pain, Arm Pain, Back Pain, Hand Pain, Leg Pain, Foot Pain, Other Skin: negative: Rash, Lesions, Matt, Bruising, Other - Medications/Allergies Allergies/Adverse Reactions: Allergies Allergy/AdvReac Type Severity Reaction Status Date / Time No Known Drug Allergies Allergy Verified 03/06/18 22:28 Medications: Current Medications Acetaminophen (Tylenol) 650 mg PO Q4H PRN PRN Reason: Headache/Fever or Pain Acetaminophen (Tylenol) 1,000 mg PO Q6H PRN PRN Reason: Moderate to Severe Pain (6-10) Hydrocodone Bitart/Acetaminophen ([place] 10/325) 1 tab PO Q4H PRN PRN Reason: Moderate Pain (4-6) Al Hydroxide/Mg Hydroxide (Maalox) 30 ml PO Q6H PRN PRN Reason: Heartburn or Indigestion Amitriptyline HCl (Elavil) [address] [facility] Last Admin: 05/26/18 20:59 Dose: 25 mg Amlodipine Besylate (Norvasc) 10 mg PO DAILY [facility] Last Admin: 05/27/18 08:07 Dose: 10 mg Artificial Tears (Tears Naturale) 0 drop EA EYE PRN PRN PRN Reason: Dry Eyes Dextrose/Water (Dextrose 50%) 25 gm SLOW IVP PRN PRN PRN Reason: Hypoglycemia Enoxaparin Sodium (Lovenox) 40 mg SC 0900 [facility] Last Admin: 05/27/18 08:03 Dose: 40 mg Famotidine (Pepcid) 20 mg PO BID [facility] Last Admin: 05/27/18 08:04 Dose: 20 mg Glucagon (Glucagon) 1 mg IM PRN PRN PRN Reason: Hypoglycemia Guaifenesin (Robitussin Sf) 200 mg PO Q4H PRN PRN Reason: Cough Lisinopril/HCTZ (Prinizide 20-12.5) 1 tab PO DAILY [facility] Last Admin: 05/27/18 08:09 Dose: 1 tab Hydralazine HCl (Apresoline) 10 mg SLOW IVP Q4H PRN PRN Reason: Systolic BP > 180 Dextrose/Water (D5w) 1,000 mls @ 0 mls/hr IV .Q0M PRN PRN Reason: Hypoglycemia Piperacillin Sod/Tazobactam (Sod 3.375 gm/ Sodium Chloride) 100 mls @ 200 mls/ hr IVPB Q6HR [facility] Last Admin: 05/27/18 04:41 Dose: 100 mls Insulin Glargine 92 units/ (Miscellaneous Medication) 0.92 mls @ 0 mls/hr SC [facility] Last Admin: 05/26/18 20:59 Dose: 0.92 mls Vancomycin HCl 1.75 gm/ Sodium (Chloride) 500 mls @ 250 mls/hr IVPB Q12HR [facility] Last Admin: 05/27/18 08:03 Dose: 500 mls Insulin Human Lispro (Humalog) 0 units SC .MODERATE SLIDING SC PRN PRN Reason: Moderate Correctional Scale Last Admin: 05/25/18 17:21 Dose: 2 unit Insulin Human Lispro (Humalog) 0 units SC .BEDTIME SLIDING SC PRN PRN Reason: Bedtime Correctional Scale Loperamide HCl (Imodium) 2 mg PO PRN PRN PRN Reason: Diarrhea/Loose Stools Loratadine (Claritin) 10 mg PO DAILYPRN PRN PRN Reason: Sinus Symptoms Magnesium Hydroxide (Milk Of Magnesium) 30 ml PO DAILYPRN PRN PRN Reason: Constipation Mineral Oil/White Petrolatum (Eucerin Cream) 0 gm TOP BIDPRN PRN PRN Reason: Dry Skin Miscellaneous Medication (Pharmacy To Dose) 1 each IVPB ASDIR [facility] Morphine Sulfate (Morphine) 2 mg SLOW IVP Q4H PRN PRN Reason: Pain Ondansetron HCl (Zofran Odt) 4 mg PO Q6H PRN PRN Reason: Nausea/Vomiting Ondansetron HCl (Zofran) 4 mg IVP Q6H PRN PRN Reason: Nausea/Vomiting Phenol (Chloraseptic [place] 180 Ml Bot) 0 ml PO PRN PRN PRN Reason: Sore Throat Saccharomyces Boulardii (Florastor) 250 mg PO DAILY [facility] Last Admin: 05/27/18 08:04 Dose: 250 mg Senna (Senokot) 2 tab PO HSPRN PRN PRN Reason: Constipation Sertraline HCl (Zoloft) 25 mg PO DAILY [facility] Last Admin: 05/27/18 08:03 Dose: 25 mg Sodium Chloride ([place] Nasal [place] 0.65%) 0 ml EA NARE QIDPRN PRN PRN Reason: Nasal Congestion Sodium Chloride (Flush - Normal Saline) 10 ml IVF Q12HR [facility] Last Admin: 05/27/18 08:09 Dose: 10 ml Sodium Chloride (Flush - Normal Saline) 10 ml IVF PRN PRN PRN Reason: Saline Flush Tramadol HCl (Ultram) 50 mg PO Q6H PRN PRN Reason: Pain Tramadol HCl (Ultram) 100 mg PO Q6H PRN PRN Reason: Pain Zolpidem Tartrate (Ambien) 5 mg PO HSPRN PRN PRN Reason: Insomnia
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
[2018-05-27] MEDS: PRE FILLED SC SCH (20:25)
[2018-05-27] MEDS: INSULIN GLARGINE SC SCH (20:25)
[2018-05-27] MEDS: Amitriptyline HCl 25 MG TAB PO SCH (20:25)
[2018-05-28] MEDS: Piperacillin/Tazobactam 3.375 GM in Sodium Chloride 0.9% 100 ML IVPB SCH ×4 (00:51→18:13)
[2018-05-28 08:46] LABS: Vancomycin, Trough 19.7 ug/mL
[2018-05-28] MEDS: Famotidine 20 MG TAB PO SCH ×2 (08:52→20:30)
[2018-05-28] MEDS: Amlodipine 10 MG TAB PO SCH (08:52)
[2018-05-28] MEDS: Saccharomyces boulardii 250 MG CAP PO SCH (08:52)
[2018-05-28] MEDS: Lisinopril/Hydrochlorothiazide 20 mg/12.5 mg Tablet PO SCH (08:56)
[2018-05-28] MEDS: Vancomycin HCl 1.75 GM in Sodium Chloride 0.9% 500 ML IVPB SCH ×2 (08:56→20:30)
--- NOTE | 2018-05-28 11:57 | PDOC.PN ---
- Subjective Encounter Start Date: 05/28/18 Encounter Start Time: 08:30 Patient seen and examined. No new complaints. No overnight events he had bleeding last night from surgical site - Objective Resuscitation Status: Resuscitation Status FULL:Full Resuscitation MAR Reviewed: Yes Vital Signs & Weight: Vital Signs (12 hours) Temp Pulse Resp BP Pulse Ox 05/28/18 07:35 98.5 F 87 18 112/70 92 L 05/28/18 04:00 97.8 F 74 16 94/55 L 90 L 05/28/18 00:07 97.7 F 76 18 92/52 L 90 L Weight Admit Weight 247 lb 3 oz Weight 247 lb 3 oz I&O: 05/27/18 05/28/18 05/29/18 06:59 06:59 06:59 Intake Total 700 820 Output Total 1450 1250 Balance -750 -430 Result Diagrams: 05/26/18 03:27 05/26/18 03:30 Additional Labs: Accuchecks 05/28/18 05/27/18 05/27/18 04:07 19:29 16:17 POC Glucose 78 142 H 143 H 05/27/18 10:54 POC Glucose 164 H Phys Exam - Physical Examination Constitutional: NAD HEENT: PERRLA, moist MMs, sclera anicteric Neck: no JVD, supple Respiratory: no wheezing, no rales, no rhonchi Cardiovascular: RRR, no significant murmur, no rub Gastrointestinal: soft, non-tender, no distention, positive bowel sounds Musculoskeletal: no edema, pulses present right foot with dressing Neurological: non-focal, normal sensation, moves all 4 limbs Psychiatric: normal affect, A&O x 3 Skin: no rash, normal turgor Dx/Plan (1) Acute osteomyelitis of metatarsal bone of right foot Code(s): M86.171 - OTHER ACUTE OSTEOMYELITIS, RIGHT ANKLE AND FOOT Status: Acute Comment: 5th toe metatarsal (2) Diabetes type 2, uncontrolled Code(s): E11.65 - TYPE 2 DIABETES MELLITUS WITH HYPERGLYCEMIA Status: Chronic (3) Diabetic foot ulcer Code(s): E11.621 - TYPE 2 DIABETES MELLITUS WITH FOOT ULCER; L97.509 - NON- PRESSURE CHRONIC ULCER OTH PRT UNSP FOOT W UNSP SEVERITY Status: Acute Comment: No osteomyelitis on MRI, blood cultures negative, WBC normal. 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 * today dr brothers will evaluate wound again * he will need wound vac now * will need wound vac arrangement now * will consider minocyline and augmentin on discharge. * medication reviewed as below * supportive treatment Review of Systems - Review of Systems Eyes: negative: Pain, Vision Change, Conjunctivae Inflammation, Eyelid Inflammation, Redness, Other ENT: negative: Ear Pain, Ear Discharge, Nose Pain, Nose Discharge, Nose Congestion, Mouth Pain, Mouth Swelling, Throat Pain, Throat Swelling, Other Respiratory: negative: Cough, Dry, Shortness of Breath, Hemoptysis, SOB with Excertion, Pleuritic Pain, Sputum, Wheezing Cardiovascular: negative: chest pain, palpitations, orthopnea, paroxysmal nocturnal dyspnea, edema, light headedness, other Gastrointestinal: negative: Nausea, Vomiting, Abdominal Pain, Diarrhea, Constipation, Melena, Hematochezia, Other Genitourinary: negative: Dysuria, Frequency, Incontinence, Hematuria, Retention , Other Musculoskeletal: negative: Neck Pain, Shoulder Pain, Arm Pain, Back Pain, Hand Pain, Leg Pain, Foot Pain, Other Skin: negative: Rash, Lesions, Matt, Bruising, Other - Medications/Allergies Allergies/Adverse Reactions: Allergies Allergy/AdvReac Type Severity Reaction Status Date / Time No Known Drug Allergies Allergy Verified 03/06/18 22:28 Medications: Current Medications Acetaminophen (Tylenol) 650 mg PO Q4H PRN PRN Reason: Headache/Fever or Pain Acetaminophen (Tylenol) 1,000 mg PO Q6H PRN PRN Reason: Moderate to Severe Pain (6-10) Hydrocodone Bitart/Acetaminophen ([place] 10/325) 1 tab PO Q4H PRN PRN Reason: Moderate Pain (4-6) Last Admin: 05/27/18 19:52 Dose: 1 tab Al Hydroxide/Mg Hydroxide (Maalox) 30 ml PO Q6H PRN PRN Reason: Heartburn or Indigestion Amitriptyline HCl (Elavil) 25 mg PO HS [facility] Last Admin: 05/27/18 20:25 Dose: 25 mg Amlodipine Besylate (Norvasc) 10 mg PO DAILY [facility] Last Admin: 05/28/18 08:52 Dose: 10 mg Artificial Tears (Tears Naturale) 0 drop EA EYE PRN PRN PRN Reason: Dry Eyes Dextrose/Water (Dextrose 50%) 25 gm SLOW IVP PRN PRN PRN Reason: Hypoglycemia Enoxaparin Sodium (Lovenox) 40 mg SC 0900 [facility] Last Admin: 05/27/18 08:03 Dose: 40 mg Famotidine (Pepcid) 20 mg PO BID [facility] Last Admin: 05/28/18 08:52 Dose: 20 mg Glucagon (Glucagon) 1 mg IM PRN PRN PRN Reason: Hypoglycemia Guaifenesin (Robitussin Sf) 200 mg PO Q4H PRN PRN Reason: Cough Lisinopril/HCTZ (Prinizide 20-12.5) 1 tab PO DAILY [facility] Last Admin: 05/28/18 08:56 Dose: 1 tab Hydralazine HCl (Apresoline) 10 mg SLOW IVP Q4H PRN PRN Reason: Systolic BP > 180 Dextrose/Water (D5w) 1,000 mls @ 0 mls/hr IV .Q0M PRN PRN Reason: Hypoglycemia Piperacillin Sod/Tazobactam (Sod 3.375 gm/ Sodium Chloride) 100 mls @ 200 mls/ hr IVPB Q6HR [facility] Last Admin: 05/28/18 06:07 Dose: 100 mls Insulin Glargine 92 units/ (Miscellaneous Medication) 0.92 mls @ 0 mls/hr SC [facility] Last Admin: 05/27/18 20:25 Dose: 0.92 mls Vancomycin HCl 1.75 gm/ Sodium (Chloride) 500 mls @ 250 mls/hr IVPB Q12HR [facility] Last Admin: 05/28/18 08:56 Dose: 500 mls Insulin Human Lispro (Humalog) 0 units SC .MODERATE SLIDING SC PRN PRN Reason: Moderate Correctional Scale Last Admin: 05/25/18 17:21 Dose: 2 unit Insulin Human Lispro (Humalog) 0 units SC .BEDTIME SLIDING SC PRN PRN Reason: Bedtime Correctional Scale Loperamide HCl (Imodium) 2 mg PO PRN PRN PRN Reason: Diarrhea/Loose Stools Loratadine (Claritin) 10 mg PO DAILYPRN PRN PRN Reason: Sinus Symptoms Magnesium Hydroxide (Milk Of Magnesium) 30 ml PO DAILYPRN PRN PRN Reason: Constipation Mineral Oil/White Petrolatum (Eucerin Cream) 0 gm TOP BIDPRN PRN PRN Reason: Dry Skin Miscellaneous Medication (Pharmacy To Dose) 1 each IVPB ASDIR [facility] Morphine Sulfate (Morphine) 2 mg SLOW IVP Q4H PRN PRN Reason: Pain Ondansetron HCl (Zofran Odt) 4 mg PO Q6H PRN PRN Reason: Nausea/Vomiting Ondansetron HCl (Zofran) 4 mg IVP Q6H PRN PRN Reason: Nausea/Vomiting Phenol (Chloraseptic [place] 180 Ml Bot) 0 ml PO PRN PRN PRN Reason: Sore Throat Saccharomyces Boulardii (Florastor) 250 mg PO DAILY [facility] Last Admin: 05/28/18 08:52 Dose: 250 mg Senna (Senokot) 2 tab PO HSPRN PRN PRN Reason: Constipation Sertraline HCl (Zoloft) 25 mg PO DAILY [facility] Last Admin: 05/28/18 08:52 Dose: 25 mg Sodium Chloride ([place] Nasal [place] 0.65%) 0 ml EA NARE QIDPRN PRN PRN Reason: Nasal Congestion Sodium Chloride (Flush - Normal Saline) 10 ml IVF Q12HR [facility] Last Admin: 05/28/18 08:57 Dose: 10 ml Sodium Chloride (Flush - Normal Saline) 10 ml IVF PRN PRN PRN Reason: Saline Flush Tramadol HCl (Ultram) 50 mg PO Q6H PRN PRN Reason: Pain Tramadol HCl (Ultram) 100 mg PO Q6H PRN PRN Reason: Pain Zolpidem Tartrate (Ambien) 5 mg PO HSPRN PRN PRN Reason: Insomnia
[2018-05-28] MEDS: Enoxaparin Sodium 40 MG/0.4 ML SYRINGE SC SCH (13:09)
[2018-05-28] MEDS: HumaLOG 300 UNITS/3 ML VIAL SC PRN (18:12)
--- NOTE | 2018-05-28 18:19 | PRG ---
DATE OF SERVICE: 05/28/2018 SUBJECTIVE: Bhavin Valles is doing well today. His wound VAC has been changed. The patient feels we ll. PHYSICAL EXAMINATION: VITAL SIGNS: Blood pressure 98.5 degrees, 87. LUNGS: Clear to auscultation. CARDIAC: Regular rate and rhythm without murmur or gallop. ABDOMEN: Soft, nontender. LABORATORY DATA: Blood cultures are negative today. Overall, patient is doing well. From my stand, patient can be discharged home on antibiotics by medardo vargas. Oral antibiotics per Dr. Mario I can see him in my office in 2-3 weeks. If he has wound ca re at [facility], I can see him there.
[2018-05-28] MEDS: Loperamide HCl 2 MG CAP PO PRN (20:07)
[2018-05-28] MEDS: Amitriptyline HCl 25 MG TAB PO SCH (20:30)
[2018-05-28] MEDS: INSULIN GLARGINE SC SCH (20:32)
[2018-05-28] MEDS: PRE FILLED SC SCH (20:32)
[2018-05-29] MEDS: Piperacillin/Tazobactam 3.375 GM in Sodium Chloride 0.9% 100 ML IVPB SCH ×5 (00:31→23:42)
[2018-05-29] MEDS: Saccharomyces boulardii 250 MG CAP PO SCH (09:35)
[2018-05-29] MEDS: Lisinopril/Hydrochlorothiazide 20 mg/12.5 mg Tablet PO SCH (09:35)
[2018-05-29] MEDS: Amlodipine 10 MG TAB PO SCH (09:35)
[2018-05-29] MEDS: Famotidine 20 MG TAB PO SCH ×2 (09:35→20:06)
[2018-05-29] MEDS: Enoxaparin Sodium 40 MG/0.4 ML SYRINGE SC SCH (09:36)
[2018-05-29] MEDS: Vancomycin HCl 1.75 GM in Sodium Chloride 0.9% 500 ML IVPB SCH ×2 (09:48→20:07)
--- NOTE | 2018-05-29 11:30 | PDOC.PN ---
- Subjective Encounter Start Date: 05/29/18 Encounter Start Time: 09:00 Patient seen and examined. No new complaints. No overnight events - Objective Resuscitation Status: Resuscitation Status FULL:Full Resuscitation MAR Reviewed: Yes Vital Signs & Weight: Vital Signs (12 hours) Temp Pulse Resp BP Pulse Ox 05/29/18 08:00 98.7 F 91 16 05/29/18 07:23 98.7 F 91 16 122/67 90 L 05/29/18 04:00 98.1 F 86 16 131/73 91 L 05/29/18 00:00 98.3 F 75 18 130/74 90 L Weight Admit Weight 247 lb 3 oz Weight 247 lb 3 oz I&O: 05/28/18 05/29/18 05/30/18 06:59 06:59 06:59 Intake Total 820 1603 Output Total 1250 2600 500 Balance -430 -997 -500 Result Diagrams: 05/26/18 03:27 05/26/18 03:30 Additional Labs: Accuchecks 05/29/18 05/29/18 05/28/18 05:25 04:59 19:22 POC Glucose 87 66 L 150 H 05/28/18 16:35 POC Glucose 188 H Phys Exam - Physical Examination Constitutional: NAD HEENT: PERRLA, moist MMs, sclera anicteric Neck: no JVD, supple Respiratory: no wheezing, no rales, no rhonchi Cardiovascular: RRR, no significant murmur, no rub Gastrointestinal: soft, non-tender, no distention, positive bowel sounds Musculoskeletal: no edema, pulses present right foot with wound vac in place Neurological: non-focal, normal sensation, moves all 4 limbs Psychiatric: normal affect, A&O x 3 Skin: no rash, normal turgor Dx/Plan (1) Acute osteomyelitis of metatarsal bone of right foot Code(s): M86.171 - OTHER ACUTE OSTEOMYELITIS, RIGHT ANKLE AND FOOT Status: Acute Comment: 5th toe metatarsal, s/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 * medication reviewed as below * symptomatic treatment * continue IV antibiotics for now * will need home health and wound vac arrangement, pt agreed with home health as he has not transportation * continue wound care Review of Systems - Review of Systems Eyes: negative: Pain, Vision Change, Conjunctivae Inflammation, Eyelid Inflammation, Redness, Other ENT: negative: Ear Pain, Ear Discharge, Nose Pain, Nose Discharge, Nose Congestion, Mouth Pain, Mouth Swelling, Throat Pain, Throat Swelling, Other Respiratory: negative: Cough, Dry, Shortness of Breath, Hemoptysis, SOB with Excertion, Pleuritic Pain, Sputum, Wheezing Cardiovascular: negative: chest pain, palpitations, orthopnea, paroxysmal nocturnal dyspnea, edema, light headedness, other Gastrointestinal: negative: Nausea, Vomiting, Abdominal Pain, Diarrhea, Constipation, Melena, Hematochezia, Other Genitourinary: negative: Dysuria, Frequency, Incontinence, Hematuria, Retention , Other Musculoskeletal: negative: Neck Pain, Shoulder Pain, Arm Pain, Back Pain, Hand Pain, Leg Pain, Foot Pain, Other Skin: negative: Rash, Lesions, Matt, Bruising, Other - Medications/Allergies Allergies/Adverse Reactions: Allergies Allergy/AdvReac Type Severity Reaction Status Date / Time No Known Drug Allergies Allergy Verified 03/06/18 22:28 Medications: Current Medications Acetaminophen (Tylenol) 650 mg PO Q4H PRN PRN Reason: Headache/Fever or Pain Acetaminophen (Tylenol) 1,000 mg PO Q6H PRN PRN Reason: Moderate to Severe Pain (6-10) Hydrocodone Bitart/Acetaminophen ([place] 10/325) 1 tab PO Q4H PRN PRN Reason: Moderate Pain (4-6) Last Admin: 05/27/18 19:52 Dose: 1 tab Al Hydroxide/Mg Hydroxide (Maalox) 30 ml PO Q6H PRN PRN Reason: Heartburn or Indigestion Amitriptyline HCl (Elavil) 25 mg PO HS [facility] Last Admin: 05/28/18 20:30 Dose: 25 mg Amlodipine Besylate (Norvasc) 10 mg PO DAILY [facility] Last Admin: 05/29/18 09:35 Dose: 10 mg Artificial Tears (Tears Naturale) 0 drop EA EYE PRN PRN PRN Reason: Dry Eyes Dextrose/Water (Dextrose 50%) 25 gm SLOW IVP PRN PRN PRN Reason: Hypoglycemia Enoxaparin Sodium (Lovenox) 40 mg SC 0900 [facility] Last Admin: 05/29/18 09:36 Dose: 40 mg Famotidine (Pepcid) 20 mg PO BID [facility] Last Admin: 05/29/18 09:35 Dose: 20 mg Glucagon (Glucagon) 1 mg IM PRN PRN PRN Reason: Hypoglycemia Guaifenesin (Robitussin Sf) 200 mg PO Q4H PRN PRN Reason: Cough Lisinopril/HCTZ (Prinizide 20-12.5) 1 tab PO DAILY [facility] Last Admin: 05/29/18 09:35 Dose: 1 tab Hydralazine HCl (Apresoline) 10 mg SLOW IVP Q4H PRN PRN Reason: Systolic BP > 180 Dextrose/Water (D5w) 1,000 mls @ 0 mls/hr IV .Q0M PRN PRN Reason: Hypoglycemia Piperacillin Sod/Tazobactam (Sod 3.375 gm/ Sodium Chloride) 100 mls @ 200 mls/ hr IVPB Q6HR [facility] Last Admin: 05/29/18 05:23 Dose: 100 mls Insulin Glargine 92 units/ (Miscellaneous Medication) 0.92 mls @ 0 mls/hr SC [facility] Last Admin: 05/28/18 20:32 Dose: 0.92 mls Vancomycin HCl 1.75 gm/ Sodium (Chloride) 500 mls @ 250 mls/hr IVPB Q12HR [facility] Last Admin: 05/29/18 09:48 Dose: 500 mls Insulin Human Lispro (Humalog) 0 units SC .MODERATE SLIDING SC PRN PRN Reason: Moderate Correctional Scale Last Admin: 05/28/18 18:12 Dose: 2 unit Insulin Human Lispro (Humalog) 0 units SC .BEDTIME SLIDING SC PRN PRN Reason: Bedtime Correctional Scale Loperamide HCl (Imodium) 2 mg PO PRN PRN PRN Reason: Diarrhea/Loose Stools Last Admin: 05/28/18 20:07 Dose: 2 mg Loratadine (Claritin) 10 mg PO DAILYPRN PRN PRN Reason: Sinus Symptoms Magnesium Hydroxide (Milk Of Magnesium) 30 ml PO DAILYPRN PRN PRN Reason: Constipation Mineral Oil/White Petrolatum (Eucerin Cream) 0 gm TOP BIDPRN PRN PRN Reason: Dry Skin Miscellaneous Medication (Pharmacy To Dose) 1 each IVPB ASDIR [facility] Morphine Sulfate (Morphine) 2 mg SLOW IVP Q4H PRN PRN Reason: Pain Ondansetron HCl (Zofran Odt) 4 mg PO Q6H PRN PRN Reason: Nausea/Vomiting Ondansetron HCl (Zofran) 4 mg IVP Q6H PRN PRN Reason: Nausea/Vomiting Phenol (Chloraseptic [place] 180 Ml Bot) 0 ml PO PRN PRN PRN Reason: Sore Throat Saccharomyces Boulardii (Florastor) 250 mg PO DAILY [facility] Last Admin: 05/29/18 09:35 Dose: 250 mg Senna (Senokot) 2 tab PO HSPRN PRN PRN Reason: Constipation Sertraline HCl (Zoloft) 25 mg PO DAILY [facility] Last Admin: 05/29/18 09:35 Dose: 25 mg Sodium Chloride ([place] Nasal [place] 0.65%) 0 ml EA NARE QIDPRN PRN PRN Reason: Nasal Congestion Sodium Chloride (Flush - Normal Saline) 10 ml IVF Q12HR [facility] Last Admin: 05/29/18 09:36 Dose: Not Given Sodium Chloride (Flush - Normal Saline) 10 ml IVF PRN PRN PRN Reason: Saline Flush Tramadol HCl (Ultram) 50 mg PO Q6H PRN PRN Reason: Pain Tramadol HCl (Ultram) 100 mg PO Q6H PRN PRN Reason: Pain Zolpidem Tartrate (Ambien) 5 mg PO HSPRN PRN PRN Reason: Insomnia
[2018-05-29] MEDS: Loperamide HCl 2 MG CAP PO PRN (20:06)
[2018-05-29] MEDS: PRE FILLED SC SCH (20:06)
[2018-05-29] MEDS: Amitriptyline HCl 25 MG TAB PO SCH (20:06)
[2018-05-29] MEDS: INSULIN GLARGINE SC SCH (20:06)
[2018-05-30] MEDS: Piperacillin/Tazobactam 3.375 GM in Sodium Chloride 0.9% 100 ML IVPB SCH ×4 (05:26→23:40)
[2018-05-30] MEDS: Saccharomyces boulardii 250 MG CAP PO SCH (08:49)
[2018-05-30] MEDS: Lisinopril/Hydrochlorothiazide 20 mg/12.5 mg Tablet PO SCH (08:49)
[2018-05-30] MEDS: Enoxaparin Sodium 40 MG/0.4 ML SYRINGE SC SCH (08:49)
[2018-05-30] MEDS: Amlodipine 10 MG TAB PO SCH (08:49)
[2018-05-30] MEDS: Famotidine 20 MG TAB PO SCH ×2 (08:49→20:13)
[2018-05-30] MEDS: Vancomycin HCl 1.75 GM in Sodium Chloride 0.9% 500 ML IVPB SCH ×2 (08:50→20:12)
--- NOTE | 2018-05-30 09:35 | PDOC.PN ---
- Subjective Encounter Start Date: 05/30/18 Encounter Start Time: 09:30 Patient seen and examined. No new complaints. No overnight events - Objective Resuscitation Status: Resuscitation Status FULL:Full Resuscitation MAR Reviewed: Yes Vital Signs & Weight: Vital Signs (12 hours) Temp Pulse Resp BP BP Pulse Ox 05/30/18 08:49 84 125/75 05/30/18 07:13 97.7 F 84 18 125/75 94 L 05/30/18 04:00 98.5 F 77 18 107/60 91 L 05/30/18 00:00 98.7 F 87 18 117/68 91 L Weight Admit Weight 247 lb 3 oz Weight 247 lb 3 oz I&O: 05/29/18 05/30/18 05/31/18 06:59 06:59 06:59 Intake Total 1603 1730 Output Total 2600 2600 Balance -997 -870 Result Diagrams: 05/26/18 03:27 05/26/18 03:30 Additional Labs: Accuchecks 05/30/18 05/29/18 05/29/18 05:39 19:24 15:38 POC Glucose 90 249 H 233 H 05/29/18 11:55 POC Glucose 143 H Phys Exam - Physical Examination Constitutional: NAD HEENT: PERRLA, moist MMs, sclera anicteric Neck: no JVD, supple Respiratory: no wheezing, no rales, no rhonchi Cardiovascular: RRR, no significant murmur, no rub Gastrointestinal: soft, non-tender, no distention, positive bowel sounds Musculoskeletal: no edema, pulses present right foot with wound vac in place Neurological: non-focal, normal sensation, moves all 4 limbs Psychiatric: normal affect, A&O x 3 Skin: no rash, normal turgor Dx/Plan (1) Acute osteomyelitis of metatarsal bone of right foot Code(s): M86.171 - OTHER ACUTE OSTEOMYELITIS, RIGHT ANKLE AND FOOT Status: Acute Comment: 5th toe metatarsal, s/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 Can d/c home and f/u with wound care and microsoft application developer as an outpatient. 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, transition social worker * await home health and wound vac arrangement * while in hospital will continue IV antibiotics as below * on discharge will change to oral antibiotics * medication reviewed as below * symptomatic treatment. Review of Systems - Review of Systems Eyes: negative: Pain, Vision Change, Conjunctivae Inflammation, Eyelid Inflammation, Redness, Other ENT: negative: Ear Pain, Ear Discharge, Nose Pain, Nose Discharge, Nose Congestion, Mouth Pain, Mouth Swelling, Throat Pain, Throat Swelling, Other Respiratory: negative: Cough, Dry, Shortness of Breath, Hemoptysis, SOB with Excertion, Pleuritic Pain, Sputum, Wheezing Cardiovascular: negative: chest pain, palpitations, orthopnea, paroxysmal nocturnal dyspnea, edema, light headedness, other Gastrointestinal: negative: Nausea, Vomiting, Abdominal Pain, Diarrhea, Constipation, Melena, Hematochezia, Other Genitourinary: negative: Dysuria, Frequency, Incontinence, Hematuria, Retention , Other Musculoskeletal: negative: Neck Pain, Shoulder Pain, Arm Pain, Back Pain, Hand Pain, Leg Pain, Foot Pain, Other Skin: negative: Rash, Lesions, Matt, Bruising, Other - Medications/Allergies Allergies/Adverse Reactions: Allergies Allergy/AdvReac Type Severity Reaction Status Date / Time No Known Drug Allergies Allergy Verified 03/06/18 22:28 Medications: Current Medications Acetaminophen (Tylenol) 650 mg PO Q4H PRN PRN Reason: Headache/Fever or Pain Acetaminophen (Tylenol) 1,000 mg PO Q6H PRN PRN Reason: Moderate to Severe Pain (6-10) Hydrocodone Bitart/Acetaminophen ([place] 10/325) 1 tab PO Q4H PRN PRN Reason: Moderate Pain (4-6) Last Admin: 05/27/18 19:52 Dose: 1 tab Al Hydroxide/Mg Hydroxide (Maalox) 30 ml PO Q6H PRN PRN Reason: Heartburn or Indigestion Amitriptyline HCl (Elavil) 25 mg PO HS [facility] Last Admin: 05/29/18 20:06 Dose: 25 mg Amlodipine Besylate (Norvasc) 10 mg PO DAILY [facility] Last Admin: 05/30/18 08:49 Dose: 10 mg Artificial Tears (Tears Naturale) 0 drop EA EYE PRN PRN PRN Reason: Dry Eyes Dextrose/Water (Dextrose 50%) 25 gm SLOW IVP PRN PRN PRN Reason: Hypoglycemia Enoxaparin Sodium (Lovenox) 40 mg SC 0900 [facility] Last Admin: 05/30/18 08:49 Dose: 40 mg Famotidine (Pepcid) 20 mg PO BID [facility] Last Admin: 05/30/18 08:49 Dose: 20 mg Glucagon (Glucagon) 1 mg IM PRN PRN PRN Reason: Hypoglycemia Guaifenesin (Robitussin Sf) 200 mg PO Q4H PRN PRN Reason: Cough Lisinopril/HCTZ (Prinizide 20-12.5) 1 tab PO DAILY [facility] Last Admin: 05/30/18 08:49 Dose: 1 tab Hydralazine HCl (Apresoline) 10 mg SLOW IVP Q4H PRN PRN Reason: Systolic BP > 180 Dextrose/Water (D5w) 1,000 mls @ 0 mls/hr IV .Q0M PRN PRN Reason: Hypoglycemia Piperacillin Sod/Tazobactam (Sod 3.375 gm/ Sodium Chloride) 100 mls @ 200 mls/ hr IVPB Q6HR [facility] Last Admin: 05/30/18 05:26 Dose: 100 mls Insulin Glargine 92 units/ (Miscellaneous Medication) 0.92 mls @ 0 mls/hr SC [facility] Last Admin: 05/29/18 20:06 Dose: 0.92 mls Vancomycin HCl 1.75 gm/ Sodium (Chloride) 500 mls @ 250 mls/hr IVPB Q12HR [facility] Last Admin: 05/30/18 08:50 Dose: 500 mls Insulin Human Lispro (Humalog) 0 units SC .MODERATE SLIDING SC PRN PRN Reason: Moderate Correctional Scale Last Admin: 05/28/18 18:12 Dose: 2 unit Insulin Human Lispro (Humalog) 0 units SC .BEDTIME SLIDING SC PRN PRN Reason: Bedtime Correctional Scale Loperamide HCl (Imodium) 2 mg PO PRN PRN PRN Reason: Diarrhea/Loose Stools Last Admin: 05/29/18 20:06 Dose: 2 mg Loratadine (Claritin) 10 mg PO DAILYPRN PRN PRN Reason: Sinus Symptoms Magnesium Hydroxide (Milk Of Magnesium) 30 ml PO DAILYPRN PRN PRN Reason: Constipation Mineral Oil/White Petrolatum (Eucerin Cream) 0 gm TOP BIDPRN PRN PRN Reason: Dry Skin Miscellaneous Medication (Pharmacy To Dose) 1 each IVPB ASDIR [facility] Morphine Sulfate (Morphine) 2 mg SLOW IVP Q4H PRN PRN Reason: Pain Ondansetron HCl (Zofran Odt) 4 mg PO Q6H PRN PRN Reason: Nausea/Vomiting Ondansetron HCl (Zofran) 4 mg IVP Q6H PRN PRN Reason: Nausea/Vomiting Phenol (Chloraseptic [place] 180 Ml Bot) 0 ml PO PRN PRN PRN Reason: Sore Throat Saccharomyces Boulardii (Florastor) 250 mg PO DAILY [facility] Last Admin: 05/30/18 08:49 Dose: 250 mg Senna (Senokot) 2 tab PO HSPRN PRN PRN Reason: Constipation Sertraline HCl (Zoloft) 25 mg PO DAILY [facility] Last Admin: 05/30/18 08:49 Dose: 25 mg Sodium Chloride ([place] Nasal [place] 0.65%) 0 ml EA NARE QIDPRN PRN PRN Reason: Nasal Congestion Sodium Chloride (Flush - Normal Saline) 10 ml IVF Q12HR [facility] Last Admin: 05/30/18 08:50 Dose: 10 ml Sodium Chloride (Flush - Normal Saline) 10 ml IVF PRN PRN PRN Reason: Saline Flush Tramadol HCl (Ultram) 50 mg PO Q6H PRN PRN Reason: Pain Tramadol HCl (Ultram) 100 mg PO Q6H PRN PRN Reason: Pain Zolpidem Tartrate (Ambien) 5 mg PO HSPRN PRN PRN Reason: Insomnia
[2018-05-30] MEDS: HumaLOG 300 UNITS/3 ML VIAL SC PRN ×2 (12:20→17:03)
[2018-05-30] MEDS: PRE FILLED SC SCH (20:13)
[2018-05-30] MEDS: Amitriptyline HCl 25 MG TAB PO SCH (20:13)
[2018-05-30] MEDS: Loperamide HCl 2 MG CAP PO PRN (20:13)
[2018-05-30] MEDS: INSULIN GLARGINE SC SCH (20:13)
[2018-05-31] MEDS: Loperamide HCl 2 MG CAP PO PRN (04:41)
[2018-05-31] MEDS: Piperacillin/Tazobactam 3.375 GM in Sodium Chloride 0.9% 100 ML IVPB SCH ×4 (05:23→23:55)
[2018-05-31] MEDS: Lisinopril/Hydrochlorothiazide 20 mg/12.5 mg Tablet PO SCH (08:05)
[2018-05-31] MEDS: Saccharomyces boulardii 250 MG CAP PO SCH (08:05)
[2018-05-31] MEDS: Amlodipine 10 MG TAB PO SCH (08:06)
[2018-05-31] MEDS: Famotidine 20 MG TAB PO SCH ×2 (08:06→20:00)
[2018-05-31] MEDS: Enoxaparin Sodium 40 MG/0.4 ML SYRINGE SC SCH (08:06)
[2018-05-31 08:39] LABS: Vancomycin, Trough 34.2 ug/mL
[2018-05-31] MEDS: Vancomycin HCl 1.75 GM in Sodium Chloride 0.9% 500 ML IVPB SCH (10:01)
[2018-05-31] MEDS: HumaLOG 300 UNITS/3 ML VIAL SC PRN ×2 (12:53→17:17)
--- NOTE | 2018-05-31 12:59 | PDOC.PN ---
- Subjective Encounter Start Date: 05/31/18 Encounter Start Time: 08:15 Patient seen and examined. No new complaints. No overnight events - Objective Resuscitation Status: Resuscitation Status FULL:Full Resuscitation MAR Reviewed: Yes Vital Signs & Weight: Vital Signs (12 hours) Temp Pulse Resp BP BP Pulse Ox 05/31/18 12:00 98.1 F 95 20 151/89 H 93 L 05/31/18 08:06 98.1 F 78 20 139/76 90 L 05/31/18 08:05 78 139/76 05/31/18 07:38 98.1 F 78 20 139/76 90 L 05/31/18 03:56 98.5 F 83 16 134/69 91 L Weight Admit Weight 247 lb 3 oz Weight 247 lb 3 oz I&O: 05/30/18 05/31/18 06/01/18 06:59 06:59 06:59 Intake Total 1730 3768 Output Total 2600 2325 Balance -870 1443 Result Diagrams: 05/26/18 03:27 05/26/18 03:30 Additional Labs: Accuchecks 05/31/18 05/31/18 05/30/18 12:16 04:01 19:31 POC Glucose 177 H 117 H 166 H 05/30/18 15:39 POC Glucose 192 H Phys Exam - Physical Examination Constitutional: NAD HEENT: PERRLA, moist MMs, sclera anicteric Neck: no JVD, supple Respiratory: no wheezing, no rales, no rhonchi Cardiovascular: RRR, no significant murmur, no rub Gastrointestinal: soft, non-tender, no distention, positive bowel sounds Musculoskeletal: no edema, pulses present Neurological: non-focal, normal sensation, moves all 4 limbs Lymphatic: no nodes Psychiatric: normal affect, A&O x 3 Skin: no rash, normal turgor Dx/Plan (1) Acute osteomyelitis of metatarsal bone of right foot Code(s): M86.171 - OTHER ACUTE OSTEOMYELITIS, RIGHT ANKLE AND FOOT Status: Acute Comment: 5th toe metatarsal, s/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 Can d/c home and f/u with wound care and regulatory and compliance technician as an outpatient. 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, delinquency prevention social worker * await outpt home health and wound care arrangement pending insurance approval * on discharge will change to oral antibiotics * vancomycin will be holded, pharmacy managing vancomycin dose * medication reviewed as below * symptomatic treatment * wound care. Review of Systems - Review of Systems Eyes: negative: Pain, Vision Change, Conjunctivae Inflammation, Eyelid Inflammation, Redness, Other ENT: negative: Ear Pain, Ear Discharge, Nose Pain, Nose Discharge, Nose Congestion, Mouth Pain, Mouth Swelling, Throat Pain, Throat Swelling, Other Respiratory: negative: Cough, Dry, Shortness of Breath, Hemoptysis, SOB with Excertion, Pleuritic Pain, Sputum, Wheezing Cardiovascular: negative: chest pain, palpitations, orthopnea, paroxysmal nocturnal dyspnea, edema, light headedness, other Gastrointestinal: negative: Nausea, Vomiting, Abdominal Pain, Diarrhea, Constipation, Melena, Hematochezia, Other Genitourinary: negative: Dysuria, Frequency, Incontinence, Hematuria, Retention , Other Musculoskeletal: negative: Neck Pain, Shoulder Pain, Arm Pain, Back Pain, Hand Pain, Leg Pain, Foot Pain, Other Skin: negative: Rash, Lesions, Matt, Bruising, Other - Medications/Allergies Allergies/Adverse Reactions: Allergies Allergy/AdvReac Type Severity Reaction Status Date / Time No Known Drug Allergies Allergy Verified 03/06/18 22:28 Medications: Current Medications Acetaminophen (Tylenol) 650 mg PO Q4H PRN PRN Reason: Headache/Fever or Pain Acetaminophen (Tylenol) 1,000 mg PO Q6H PRN PRN Reason: Moderate to Severe Pain (6-10) Hydrocodone Bitart/Acetaminophen ([place] 10/325) 1 tab PO Q4H PRN PRN Reason: Moderate Pain (4-6) Last Admin: 05/27/18 19:52 Dose: 1 tab Al Hydroxide/Mg Hydroxide (Maalox) 30 ml PO Q6H PRN PRN Reason: Heartburn or Indigestion Amitriptyline HCl (Elavil) 25 mg PO HS [facility] Last Admin: 05/30/18 20:13 Dose: 25 mg Amlodipine Besylate (Norvasc) 10 mg PO DAILY [facility] Last Admin: 05/31/18 08:06 Dose: 10 mg Artificial Tears (Tears Naturale) 0 drop EA EYE PRN PRN PRN Reason: Dry Eyes Dextrose/Water (Dextrose 50%) 25 gm SLOW IVP PRN PRN PRN Reason: Hypoglycemia Enoxaparin Sodium (Lovenox) 40 mg SC 0900 [facility] Last Admin: 05/31/18 08:06 Dose: 40 mg Famotidine (Pepcid) 20 mg PO BID [facility] Last Admin: 05/31/18 08:06 Dose: 20 mg Glucagon (Glucagon) 1 mg IM PRN PRN PRN Reason: Hypoglycemia Guaifenesin (Robitussin Sf) 200 mg PO Q4H PRN PRN Reason: Cough Lisinopril/HCTZ (Prinizide 20-12.5) 1 tab PO DAILY [facility] Last Admin: 05/31/18 08:05 Dose: 1 tab Hydralazine HCl (Apresoline) 10 mg SLOW IVP Q4H PRN PRN Reason: Systolic BP > 180 Dextrose/Water (D5w) 1,000 mls @ 0 mls/hr IV .Q0M PRN PRN Reason: Hypoglycemia Piperacillin Sod/Tazobactam (Sod 3.375 gm/ Sodium Chloride) 100 mls @ 200 mls/ hr IVPB Q6HR [facility] Last Admin: 05/31/18 12:53 Dose: 100 mls Insulin Glargine 92 units/ (Miscellaneous Medication) 0.92 mls @ 0 mls/hr SC HS [facility] Last Admin: 05/30/18 20:13 Dose: Not Given Vancomycin HCl 1.75 gm/ Sodium (Chloride) 500 mls @ 250 mls/hr IVPB .PENDING LEVEL [facility] Insulin Human Lispro (Humalog) 0 units SC .MODERATE SLIDING SC PRN PRN Reason: Moderate Correctional Scale Last Admin: 05/31/18 12:53 Dose: 2 unit Insulin Human Lispro (Humalog) 0 units SC .BEDTIME SLIDING SC PRN PRN Reason: Bedtime Correctional Scale Loperamide HCl (Imodium) 2 mg PO PRN PRN PRN Reason: Diarrhea/Loose Stools Last Admin: 05/31/18 04:41 Dose: 2 mg Loratadine (Claritin) 10 mg PO DAILYPRN PRN PRN Reason: Sinus Symptoms Magnesium Hydroxide (Milk Of Magnesium) 30 ml PO DAILYPRN PRN PRN Reason: Constipation Mineral Oil/White Petrolatum (Eucerin Cream) 0 gm TOP BIDPRN PRN PRN Reason: Dry Skin Miscellaneous Medication (Pharmacy To Dose) 1 each IVPB ASDIR [facility] Morphine Sulfate (Morphine) 2 mg SLOW IVP Q4H PRN PRN Reason: Pain Ondansetron HCl (Zofran Odt) 4 mg PO Q6H PRN PRN Reason: Nausea/Vomiting Ondansetron HCl (Zofran) 4 mg IVP Q6H PRN PRN Reason: Nausea/Vomiting Phenol (Chloraseptic [place] 180 Ml Bot) 0 ml PO PRN PRN PRN Reason: Sore Throat Saccharomyces Boulardii (Florastor) 250 mg PO DAILY [facility] Last Admin: 05/31/18 08:05 Dose: 250 mg Senna (Senokot) 2 tab PO HSPRN PRN PRN Reason: Constipation Sertraline HCl (Zoloft) 25 mg PO DAILY [facility] Last Admin: 05/31/18 08:06 Dose: 25 mg Sodium Chloride ([place] Nasal [place] 0.65%) 0 ml EA NARE QIDPRN PRN PRN Reason: Nasal Congestion Sodium Chloride (Flush - Normal Saline) 10 ml IVF Q12HR [facility] Last Admin: 05/31/18 08:07 Dose: 10 ml Sodium Chloride (Flush - Normal Saline) 10 ml IVF PRN PRN PRN Reason: Saline Flush Last Admin: 05/31/18 05:24 Dose: 10 ml Tramadol HCl (Ultram) 50 mg PO Q6H PRN PRN Reason: Pain Tramadol HCl (Ultram) 100 mg PO Q6H PRN PRN Reason: Pain Zolpidem Tartrate (Ambien) 5 mg PO HSPRN PRN PRN Reason: Insomnia
[2018-05-31] MEDS: Amitriptyline HCl 25 MG TAB PO SCH (20:00)
[2018-05-31] MEDS: PRE FILLED SC SCH (20:01)
[2018-05-31] MEDS: INSULIN GLARGINE SC SCH (20:01)
[2018-05-31 20:45] LABS: Vancomycin, Random 21.4 ug/mL (See Comment)
[2018-05-31] MEDS ORDERED: Vancomycin HCl 1.75 GM in Sodium Chloride 0.9% 500 ML IVPB SCH (21:00)
[2018-06-01] MEDS ORDERED: Vancomycin HCl 1 GM in Premix Bag 1 BAG IVPB SCH (04:00)
[2018-06-01] MEDS: Piperacillin/Tazobactam 3.375 GM in Sodium Chloride 0.9% 100 ML IVPB SCH ×2 (06:42→11:07)
[2018-06-01] MEDS: Enoxaparin Sodium 40 MG/0.4 ML SYRINGE SC SCH (08:06)
[2018-06-01] MEDS: Saccharomyces boulardii 250 MG CAP PO SCH (08:06)
[2018-06-01] MEDS: Amlodipine 10 MG TAB PO SCH (08:06)
[2018-06-01] MEDS: Lisinopril/Hydrochlorothiazide 20 mg/12.5 mg Tablet PO SCH (08:07)
[2018-06-01] MEDS: Famotidine 20 MG TAB PO SCH (08:07)
--- NOTE | 2018-06-01 10:59 | PDOC.PN ---
- Subjective Encounter Start Date: 06/01/18 Encounter Start Time: 09:30 Patient seen and examined. No new complaints. No overnight events - Objective Resuscitation Status: Resuscitation Status FULL:Full Resuscitation MAR Reviewed: Yes Vital Signs & Weight: Vital Signs (12 hours) Temp Pulse Resp BP BP BP Pulse Ox 06/01/18 08:07 73 126/77 06/01/18 08:06 97.4 F L 73 16 126/77 93 L 06/01/18 07:46 97.4 F L 73 16 126/77 93 L 06/01/18 04:36 98.3 F 75 20 148/76 H 93 L 06/01/18 01:20 98.1 F 81 20 131/73 92 L Weight Admit Weight 247 lb 3 oz Weight 247 lb 3 oz I&O: 05/31/18 06/01/18 06/02/18 06:59 06:59 06:59 Intake Total 3768 1835 Output Total 2325 1570 Balance 1443 265 Result Diagrams: 05/26/18 03:27 05/26/18 03:30 Additional Labs: Accuchecks 06/01/18 05/31/18 05/31/18 04:34 19:08 16:21 POC Glucose 152 H 208 H 273 H 05/31/18 12:16 POC Glucose 177 H Phys Exam - Physical Examination Constitutional: NAD HEENT: PERRLA, moist MMs, sclera anicteric Neck: no JVD, supple Respiratory: no wheezing, no rales, no rhonchi Cardiovascular: RRR, no significant murmur, no rub Gastrointestinal: soft, non-tender, no distention, positive bowel sounds obesity+ Musculoskeletal: pulses present right foot with wound vac Neurological: non-focal, normal sensation, moves all 4 limbs Psychiatric: normal affect, A&O x 3 Skin: no rash, normal turgor Dx/Plan (1) Acute osteomyelitis of metatarsal bone of right foot Code(s): M86.171 - OTHER ACUTE OSTEOMYELITIS, RIGHT ANKLE AND FOOT Status: Acute Comment: 5th toe metatarsal, s/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 Can d/c home and f/u with wound care and flat locker as an outpatient. 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, social human services assistants * continue IV antibiotics while in hospital * await home health and wound vac arrangement * medication reviewed as below * symptomatic treatment * wound care. Review of Systems - Review of Systems Eyes: negative: Pain, Vision Change, Conjunctivae Inflammation, Eyelid Inflammation, Redness, Other ENT: negative: Ear Pain, Ear Discharge, Nose Pain, Nose Discharge, Nose Congestion, Mouth Pain, Mouth Swelling, Throat Pain, Throat Swelling, Other Respiratory: negative: Cough, Dry, Shortness of Breath, Hemoptysis, SOB with Excertion, Pleuritic Pain, Sputum, Wheezing Cardiovascular: negative: chest pain, palpitations, orthopnea, paroxysmal nocturnal dyspnea, edema, light headedness, other Gastrointestinal: negative: Nausea, Vomiting, Abdominal Pain, Diarrhea, Constipation, Melena, Hematochezia, Other Genitourinary: negative: Dysuria, Frequency, Incontinence, Hematuria, Retention , Other Musculoskeletal: negative: Neck Pain, Shoulder Pain, Arm Pain, Back Pain, Hand Pain, Leg Pain, Foot Pain, Other Skin: negative: Rash, Lesions, Matt, Bruising, Other - Medications/Allergies Allergies/Adverse Reactions: Allergies Allergy/AdvReac Type Severity Reaction Status Date / Time No Known Drug Allergies Allergy Verified 03/06/18 22:28 Medications: Current Medications Acetaminophen (Tylenol) 650 mg PO Q4H PRN PRN Reason: Headache/Fever or Pain Acetaminophen (Tylenol) 1,000 mg PO Q6H PRN PRN Reason: Moderate to Severe Pain (6-10) Hydrocodone Bitart/Acetaminophen ([place] 10/325) 1 tab PO Q4H PRN PRN Reason: Moderate Pain (4-6) Last Admin: 05/27/18 19:52 Dose: 1 tab Al Hydroxide/Mg Hydroxide (Maalox) 30 ml PO Q6H PRN PRN Reason: Heartburn or Indigestion Amitriptyline HCl (Elavil) [address] [facility] Last Admin: 05/31/18 20:00 Dose: 25 mg Amlodipine Besylate (Norvasc) 10 mg PO DAILY [facility] Last Admin: 06/01/18 08:06 Dose: 10 mg Artificial Tears (Tears Naturale) 0 drop EA EYE PRN PRN PRN Reason: Dry Eyes Dextrose/Water (Dextrose 50%) 25 gm SLOW IVP PRN PRN PRN Reason: Hypoglycemia Enoxaparin Sodium (Lovenox) 40 mg SC 0900 [facility] Last Admin: 06/01/18 08:06 Dose: 40 mg Famotidine (Pepcid) 20 mg PO BID [facility] Last Admin: 06/01/18 08:07 Dose: 20 mg Glucagon (Glucagon) 1 mg IM PRN PRN PRN Reason: Hypoglycemia Guaifenesin (Robitussin Sf) 200 mg PO Q4H PRN PRN Reason: Cough Lisinopril/HCTZ (Prinizide 20-12.5) 1 tab PO DAILY [facility] Last Admin: 06/01/18 08:07 Dose: 1 tab Hydralazine HCl (Apresoline) 10 mg SLOW IVP Q4H PRN PRN Reason: Systolic BP > 180 Dextrose/Water (D5w) 1,000 mls @ 0 mls/hr IV .Q0M PRN PRN Reason: Hypoglycemia Piperacillin Sod/Tazobactam (Sod 3.375 gm/ Sodium Chloride) 100 mls @ 200 mls/ hr IVPB Q6HR [facility] Last Admin: 06/01/18 06:42 Dose: 100 mls Insulin Glargine 92 units/ (Miscellaneous Medication) 0.92 mls @ 0 mls/hr SC [facility] Last Admin: 05/31/18 20:01 Dose: 0.92 mls Vancomycin HCl 1 gm/ Device 200 mls @ 200 mls/hr IVPB 0400,1600 [facility] Last Admin: 06/01/18 04:31 Dose: 200 mls Insulin Human Lispro (Humalog) 0 units SC .MODERATE SLIDING SC PRN PRN Reason: Moderate Correctional Scale Last Admin: 05/31/18 17:17 Dose: 6 unit Insulin Human Lispro (Humalog) 0 units SC .BEDTIME SLIDING SC PRN PRN Reason: Bedtime Correctional Scale Loperamide HCl (Imodium) 2 mg PO PRN PRN PRN Reason: Diarrhea/Loose Stools Last Admin: 05/31/18 04:41 Dose: 2 mg Loratadine (Claritin) 10 mg PO DAILYPRN PRN PRN Reason: Sinus Symptoms Magnesium Hydroxide (Milk Of Magnesium) 30 ml PO DAILYPRN PRN PRN Reason: Constipation Mineral Oil/White Petrolatum (Eucerin Cream) 0 gm TOP BIDPRN PRN PRN Reason: Dry Skin Miscellaneous Medication (Pharmacy To Dose) 1 each IVPB ASDIR [facility] Morphine Sulfate (Morphine) 2 mg SLOW IVP Q4H PRN PRN Reason: Pain Ondansetron HCl (Zofran Odt) 4 mg PO Q6H PRN PRN Reason: Nausea/Vomiting Ondansetron HCl (Zofran) 4 mg IVP Q6H PRN PRN Reason: Nausea/Vomiting Phenol (Chloraseptic [place] 180 Ml Bot) 0 ml PO PRN PRN PRN Reason: Sore Throat Saccharomyces Boulardii (Florastor) 250 mg PO DAILY [facility] Last Admin: 06/01/18 08:06 Dose: 250 mg Senna (Senokot) 2 tab PO HSPRN PRN PRN Reason: Constipation Sertraline HCl (Zoloft) 25 mg PO DAILY [facility] Last Admin: 06/01/18 08:07 Dose: 25 mg Sodium Chloride ([place] Nasal [place] 0.65%) 0 ml EA NARE QIDPRN PRN PRN Reason: Nasal Congestion Sodium Chloride (Flush - Normal Saline) 10 ml IVF Q12HR [facility] Last Admin: 06/01/18 08:07 Dose: 10 ml Sodium Chloride (Flush - Normal Saline) 10 ml IVF PRN PRN PRN Reason: Saline Flush Last Admin: 05/31/18 05:24 Dose: 10 ml Tramadol HCl (Ultram) 50 mg PO Q6H PRN PRN Reason: Pain Tramadol HCl (Ultram) 100 mg PO Q6H PRN PRN Reason: Pain Zolpidem Tartrate (Ambien) 5 mg PO HSPRN PRN PRN Reason: Insomnia
[2018-06-01] MEDS: HumaLOG 300 UNITS/3 ML VIAL SC PRN (11:16)
--- NOTE | 2018-06-01 13:21 | DIS ---
DATE OF ADMISSION: 05/24/2018 DATE OF DISCHARGE: 06/01/2018 PRIMARY CARE PHYSICIAN: Leslie Encarnacion, [facility]- DISCHARGE DISPOSITION: Home with outpatient wound care. PRIMARY DISCHARGE DIAGNOSES: 1. Acute osteomyelitis of metatarsal bone of the right foot, status post incision and drainage. 2. Diabetic foot infection. SECONDARY DISCHARGE DIAGNOSES: Hypertension, dyslipidemia, diabetic neuropathy, diabetes type 2, obe sity with BMI 35, anxiety and depression. PRIMARY PROCEDURE/OPERATION: The patient had incision and debridement by Dr. Tillman. The patient mortensen d amputation of right fifth toe and metatarsal debridement of the cuboid and metatarsal resection. RADIOLOGICAL INVESTIGATION: Foot x-ray, lower extremity MRI. SIGNIFICANT LABORATORY DATA: WBC 7.7, hemoglobin 14.4, platelet 264,000. Sodium 135, creatinine 0.6 3. Urinalysis normal. Blood culture negative. DISCHARGE MEDICATIONS: Amitriptyline 25 mg p.o. at bedtime, amlodipine 10 mg p.o. daily, Glargine in sulin 92 units subcu in the evening, Prinzide 20/12.5 one tablet p.o. daily, Zoloft 25 mg p.o. daily, Augmentin 875 mg p.o. b.i.d., minocycline 100 mg p.o. b.i.d., Florastor 250 mg p.o. daily. CONTRAINDICATIONS: None. CODE STATUS: Full code. INPATIENT CONSULTANTS: Dr. Mario was consulted while in hospital. Dr. Tillman was following while in hospital. TEST RESULTS PENDING ON DISCHARGE: None. ALLERGIES: No known drug allergy. DISCHARGE PLAN: Post hospital, the patient is instructed to follow up with Dr. Primo Crawford in 2-3 weeks and Wound Care Clinic. The patient will make appointment with primary care physician. HOSPITAL COURSE: A 63-year-old male who was admitted by me on 05/25/2018. Please see my HPI for fur ther details. The patient has a diabetic neuropathy and he has a nonhealing ulcer on the right foot. The patient was having swelling of entire right foot as well as lower extremity. He was admitted f or diabetic foot infection. He was admitted to medical floor. The patient had MRI of lower extremit y, which showed deep plantar and lateral aspect wound contacting the base of the fifth metatarsal wit h osteomyelitis. Dr. Tillman was consulted and Dr. Tillman did fifth toe amputation as well as debride ment of cuboid and transmetatarsal resection. Pathology margin was clear. Dr. Mario was consulted a nd he recommended Augmentin and minocycline. The patient was getting wound care while in hospital. He required wound vacuum while in hospital. Wound vacuum was arranged with help of case folder. Ou tpatient wound care through our hospitalization is also arranged. This patient lives in a [facility] and he cannot get home health care because of social reason as well as funding reason. F inally, as we were not able to get home health at home, the patient agreed to come to the hospital fo r wound care. At this point, the patient is medically stable for discharge. The patient is seen and examined at [facility] today. Please see my progress note from today for further detail.
[2018-06-01 16:03] VITALS: BP 156/85; TEMP 98
== END 2018-06-01 16:29 | disposition home or self-care (01) | DRG 617 ==
LOC: ERS 15:36 → T4-B 20:52
PROVIDERS: ADMIT Hospitalist; ATTEND Hospitalist
PROC: 0Y6M0ZF Detachment at Right Foot, Partial 5th Ray, Open Approach (ICD-10-PCS; principal; 2018-05-26)
PROC: 0QBL0ZZ Excision of Right Tarsal, Open Approach (ICD-10-PCS; 2018-05-26)
DX: E11.69 Type 2 diabetes mellitus with other specified complication (principal); M86.171 Other acute osteomyelitis, right ankle and foot; E87.2 Acidosis; E87.1 Hypo-osmolality and hyponatremia; L03.115 Cellulitis of right lower limb; E11.65 Type 2 diabetes mellitus with hyperglycemia; E11.621 Type 2 diabetes mellitus with foot ulcer; E11.628 Type 2 diabetes mellitus with other skin complications; E11.42 Type 2 diabetes mellitus with diabetic polyneuropathy; L97.519 Non-pressure chronic ulcer of other part of right foot with unspecified severity; I10 Essential (primary) hypertension; E66.9 Obesity, unspecified; Z68.35 Body mass index [BMI] 35.0-35.9, adult; F41.9 Anxiety disorder, unspecified; F32.9 Major depressive disorder, single episode, unspecified; Z79.4 Long term (current) use of insulin; Z79.899 Other long term (current) drug therapy
CPT/HCPCS: 36415; 36416; 80048; 80053; 80202; 81001; 83605; 85025; 86140; 87040; 88305; 88311; 96365; 96366; 96368; A4216; A9579; G8978-GP-CJ; G8979-GP-CJ; G8980-GP-CJ; J1650; J1815; J2250; J2543; J2704; J3010; J3370; J7050; S0020

== ENCOUNTER 2018-06-11 08:23 | Outpatient (CLI) | payer OTHER ==
--- NOTE | 2018-06-11 12:28 | PRG ---
DATE OF SERVICE: 06/11/2018 CHIEF COMPLAINT: Wound to the right lateral foot. HISTORY OF PRESENT ILLNESS: This is a 63-year-old male who presents to my clinic today for evaluatio n of wound on the lateral aspect of the right foot. The patient has been getting wound VAC changes 3 times a week on this wound. He had developed an infection on this foot and was admitted to the [facility] at the beginning of May. He had a surgical debridement and resection of bone from the latera l aspect of the foot which was left open to heel secondarily on 05/24/2018. He has been getting 3 ti mes a week wound VAC changes since that time. PAST MEDICAL HISTORY/PAST SURGICAL HISTORY/MEDICATIONS/ALLERGIES/ SOCIAL HISTORY/FAMILY HISTORY: Rev iewed in his paper chart. It is documented there, I reviewed it and deem it accurate. REVIEW OF SYSTEMS: CONSTITUTIONAL: Denies nausea, vomiting, fevers or chills. INTEGUMENTARY: Relates open wound to the right foot. ENDOCRINOLOGY: Relates diabetes with good glycemic control. PHYSICAL EXAMINATION: VITAL SIGNS: Temperature 97.7, pulse 86, respirations 21, blood pressure 151/84, blood sugar was 70. CARDIOVASCULAR: Dorsalis pedis, posterior tibial pulses are palpable on the right foot. INTEGUMENTARY: This is a large wound to the right lateral foot measuring 7 cm x 3 cm x 2.5 cm deep. This is 90% granulation tissue, 10% slough. No periwound erythema, edema or warmth. ASSESSMENT: Non-pressure chronic ulceration status post right foot fifth toe amputation and surgical debridement of the fifth metatarsal up to the cuboid. PLAN: 1. Full-thickness debridement of subcutaneous tissue layer removing all nonviable tissue and biofilm from the wound base down to a bleeding granular wound base with dermal curet. The patient tolerated the procedure well. 2. We are going to reapply the wound VAC. Continue 3 times a week, dressing changes for this. 3. The patient will follow up with me in 1 week for reevaluation or sooner should he have any proble ms before that time.
== END 2018-06-11 08:24 | disposition home or self-care (01) ==
LOC: WCC 08:23
PROVIDERS: ATTEND Podiatrist Foot & Ankle Surgery
DX: L97.519 Non-pressure chronic ulcer of other part of right foot with unspecified severity (principal); Z89.421 Acquired absence of other right toe(s)
CPT/HCPCS: 11042; 36416; 99203; G0463

== ENCOUNTER 2018-06-16 12:49 | Outpatient (CLI) | payer OTHER ==
--- NOTE | 2018-06-16 15:15 | PRG ---
DATE OF SERVICE: 06/16/2018 SUBJECTIVE: Mr. Valles was seen in wound care wound care staff. He reported his foot smell fou l. Right foot amputation of the metatarsal proximally. The wound is granulating. There was some gr ayish tissue of question. This was debrided sharply. There was healthy bleeding. There was no evid ence of deep infection. The patient has Augmentin 875 p.o. b.i.d. two more pills left as well as min ocycline. He is followed by Dr. Mario. I gave him another week of Augmentin. He has followup with Podiatry, Dr. Mario and myself. I will see him in Wound Care Clinic in a couple of weeks. The wound is granulating and healing. Wound care continued wound VAC.
== END 2018-06-16 12:50 | disposition home or self-care (01) ==
LOC: WCC 12:49
PROVIDERS: ATTEND Podiatrist Foot & Ankle Surgery
DX: T81.89XD Other complications of procedures, not elsewhere classified, subsequent encounter (principal); Z89.431 Acquired absence of right foot

== ENCOUNTER 2018-06-18 09:18 | Outpatient (CLI) | payer OTHER ==
--- NOTE | 2018-06-18 10:03 | PRG ---
DATE OF SERVICE: 06/18/2018 SUBJECTIVE: This is a 63-year-old male returns today for follow up right lateral foot wound status p ost fifth ray amputation. He states he was seen by Dr. Tillman, his surgeon, on Thursday who did rosa e debridement of the wound. He has continued to have 3 times a week dressing changes. Denies any n ausea, vomiting, fevers or chills. PHYSICAL EXAMINATION: Wound to the right lateral aspect of the foot measuring 3.2 cm x 9.6 cm x 2 cm measuring with 80% granulation tissue and 20% slough. Some minimal periwound erythema. No edema or warmth. ASSESSMENT: Non-pressure chronic ulceration to the right lateral foot, status post fifth ray amputat ion. PLAN: No debridement was performed today as the patient just had it debrided on Thursday. I have n oted some increase in the size of the wound, although I am not certain as to the extent of the debrid ement on Thursday and so that could be secondary to that. We will continue with the wound vacuum. I am going to apply a silver GranuFoam dressing with the VAC. The patient states he has been taking some Augmentin and he should continue this until it is complete. Follow up with me in 1 week.
== END 2018-06-18 09:19 | disposition home or self-care (01) ==
LOC: WCC 09:18
PROVIDERS: ATTEND Podiatrist Foot & Ankle Surgery
DX: L97.519 Non-pressure chronic ulcer of other part of right foot with unspecified severity (principal); Z89.431 Acquired absence of right foot

== ENCOUNTER 2018-06-23 12:47 | Outpatient (CLI) | payer OTHER | END 2018-06-23 12:48 | disposition home or self-care (01) | LOC: WCC 12:47 | PROVIDERS: ATTEND Podiatrist Foot & Ankle Surgery | DX: S91.301D Unspecified open wound, right foot, subsequent encounter (principal) | CPT/HCPCS: 97605 ==

== ENCOUNTER 2018-06-25 08:46 | Outpatient (CLI) | payer OTHER ==
--- NOTE | 2018-06-25 09:47 | PRG ---
DATE OF SERVICE: 06/25/2018 SUBJECTIVE: A 63-year-old male returns today for followup right foot open wound, status post incisio n and drainage with debridement of bone. The patient has been doing well with wound VAC changes. He said last week when he had to go from Thursday until Thursday the wound had a little bit of an odor t o it. He has just recently finished up his antibiotics. Denies any other acute events since last vi sit. PHYSICAL EXAMINATION: Wound to the right lateral forefoot measuring 9 cm x 2 cm x 0.9 cm. It is 70% granulation tissue, 30% slough, minimal serosanguineous drainage, mild odor to the wound. Some mild edema and periwound erythema, no ascending lymphangitis. ASSESSMENT: Non-pressure chronic ulceration status post right foot incision and drainage and debride ment of bone. PLAN: 1. Full thickness debridement of subcutaneous tissue layer removing all nonviable tissue and biofilm from the wound base down to a bleeding granular wound base. 2. Continue with 3 times a week wound VAC changes using the silver foam and 125 mmHg negative pressu re. 3. The patient will have Thursday and Thursday dressing changes and then follow up with me next .
== END 2018-06-25 08:47 | disposition home or self-care (01) ==
LOC: WCC 08:46
PROVIDERS: ATTEND Podiatrist Foot & Ankle Surgery
DX: T81.89XD Other complications of procedures, not elsewhere classified, subsequent encounter (principal)

== ENCOUNTER 2018-06-28 09:04 | Outpatient (CLI) | payer OTHER | END 2018-06-28 09:05 | disposition home or self-care (01) | LOC: WCC 09:04 | PROVIDERS: ATTEND Podiatrist Foot & Ankle Surgery | DX: S91.301D Unspecified open wound, right foot, subsequent encounter (principal) | CPT/HCPCS: 97605 ==

== ENCOUNTER 2018-07-02 08:58 | Outpatient (CLI) | payer OTHER ==
--- NOTE | 2018-07-02 10:25 | PRG ---
DATE OF SERVICE: 07/02/2018 SUBJECTIVE: A 63-year-old male returns today for followup right foot wound, status post right fifth ray amputation. He has done well with the wound VAC changes over the last week and did have to cance l the appointment on Thursday due to some problems at the clinic and therefore, the VAC leaked and c ause some irritation around his toes. Other than that no concerns. Denies nausea, vomiting, fevers or chills. PHYSICAL EXAMINATION: Wound measures 2.3 cm x 9 cm x 0.7 cm, 50% slough, 50% granulation tissue. Th ere is minimal serosanguineous drainage, some malodor, some mild periwound maceration and some erythe ma secondary to the VAC placement. No signs of infection. ASSESSMENT: Non-pressure chronic ulceration of the right foot, status post right fifth ray amputatio n. Improving with VAC changes. PLAN: 1. Full thickness debridement of subcutaneous tissue layer removing all nonviable tissue and biofilm from the wound base with dermal curette down to bleeding granular wound base. The patient tolerated the procedure well. 2. We are going to continue with 3 times a week VAC changes to the right foot and he will follow up with me in 1 week. I expect that changing the VAC 3 times a week versus 2 will help to rectify the c juliann of it leaking and causing irritation to the skin.
[2018-07-02] MEDS ORDERED: Sodium Chloride 0.9% 15 ML NEB ONE (12:00)
== END 2018-07-02 08:59 | disposition home or self-care (01) ==
LOC: WCC 08:58
PROVIDERS: ATTEND Podiatrist Foot & Ankle Surgery
DX: L97.519 Non-pressure chronic ulcer of other part of right foot with unspecified severity (principal); Z89.421 Acquired absence of other right toe(s)
CPT/HCPCS: 11042; A4218

== ENCOUNTER 2018-07-05 12:37 | Outpatient (CLI) | payer OTHER ==
[2018-07-05] MEDS ORDERED: Sodium Chloride 0.9% 15 ML NEB ONE (15:45)
== END 2018-07-05 12:38 | disposition home or self-care (01) ==
LOC: WCC 12:37
PROVIDERS: ATTEND Podiatrist Foot & Ankle Surgery
DX: S91.301D Unspecified open wound, right foot, subsequent encounter (principal)
CPT/HCPCS: 97605; A4218

== ENCOUNTER 2018-07-07 09:20 | Outpatient (CLI) | payer OTHER ==
--- NOTE | 2018-07-07 12:38 | OP ---
DATE OF PROCEDURE: 07/07/2018 WOUND CARE VISIT SURGEON: Mr. Cortes Tillman Mr. Valles today is seen in Wound Care follow up right foot amputation of his fourth and fifth toes me gifty. The problem is his wound extends up proximal lateral right foot. The wound overall; corona lennie, is granulating, looks good except in the proximal lateral aspect of the foot where there is some necrotic foul smelling tissue. After verbal informed consent, the area was prepared with alcohol and necrotic callus skin debrided s harply as well as underlying subcutaneous tissue, and muscle down to near the bone. There was good b leeding on the underlying tissues. There was connective tissue debrided. Wound VAC reapplied. The patient tolerated the procedure well. Hopefully, this wound will heal without problems, although he is at risk for more proximal foot infec tion and limb loss due to this more proximal foot wound.
[2018-07-07] MEDS ORDERED: Sodium Chloride 0.9% 15 ML NEB ONE (16:00)
== END 2018-07-07 09:21 | disposition home or self-care (01) ==
LOC: WCC 09:20
PROVIDERS: ATTEND Podiatrist Foot & Ankle Surgery
DX: Z47.81 Encounter for orthopedic aftercare following surgical amputation (principal); Z89.431 Acquired absence of right foot
CPT/HCPCS: 97605; A4218

== ENCOUNTER 2018-07-09 09:10 | Outpatient (CLI) | payer OTHER ==
--- NOTE | 2018-07-09 10:42 | PRG ---
DATE OF SERVICE: 07/09/2018 SUBJECTIVE: A 63-year-old male returns today for followup right foot wound, status post right fifth ray amputation and debridement. The patient continues to have VAC changes 3 times a week, states amalia t his surgeon saw him this last week and did some significant debridement on the area. PHYSICAL EXAMINATION: Ulceration measures 8.4 cm x 2.0 cm x 0.9 cm of depth at 75% granulation tissu e, 25% slough. No periwound erythema, edema or warmth. There is some slight malodor. Wound does no t probe to bone. ASSESSMENT: 1. Non-pressure chronic ulceration, status post right fifth ray amputation. 2. Diabetes with peripheral neuropathy. PLAN: 1. Full thickness debridement of subcutaneous tissue layer removing all nonviable tissue and biofilm from the wound base down to a bleeding granular wound base performed with dermal curet. The patient tolerated the procedure well. 2. Going to continue with wound VAC changes 3 times a week and he will follow up with me in 1 week. 3. The patient states that he had ordered an offloading immobilization cast boot, which should be co dominique in this next week. This will be good to remove some of the pressure that the dorsal aspect of t he wound is healing well, although the plantar fifth metatarsal base area which is on the weightbeari ng surface has been slow to heal, so the offloading boot will be beneficial. He will follow up with me in 1 week.
[2018-07-09] MEDS ORDERED: Sodium Chloride 0.9% 15 ML NEB ONE (20:00)
== END 2018-07-09 09:11 | disposition home or self-care (01) ==
LOC: WCC 09:10
PROVIDERS: ATTEND Podiatrist Foot & Ankle Surgery
DX: E11.621 Type 2 diabetes mellitus with foot ulcer (principal); L97.519 Non-pressure chronic ulcer of other part of right foot with unspecified severity; E11.42 Type 2 diabetes mellitus with diabetic polyneuropathy; Z89.421 Acquired absence of other right toe(s)
CPT/HCPCS: 11042; A4218

== ENCOUNTER 2018-07-12 14:39 | Outpatient (CLI) | payer OTHER ==
[~2018-07-12 14:39] MED LIST: Sodium Chloride 0.9% 15 ML NEB ONE
== END 2018-07-12 14:40 | disposition home or self-care (01) ==
LOC: WCC 14:39
PROVIDERS: ATTEND Podiatrist Foot & Ankle Surgery
DX: S91.301D Unspecified open wound, right foot, subsequent encounter (principal)
CPT/HCPCS: 97605; A4218

== ENCOUNTER 2018-07-13 15:48 | Emergency (ER) | payer OTHER ==
[2018-07-13 17:04] LABS: #Eosinphils 0.1 thou/uL (0.0-0.7); #Lymphocytes 1.3 thou/uL (1.20-3.40); #Monocytes 0.8 thou/uL (0.11-0.59); #Neutrophils 6.6 thou/uL (1.40-6.50); %Basophils 0.4 % (0.0-1.0); %Eosinophils 0.8 % (0.0-10.0); %Lymphocytes 15.2 % (21.0-51.0); %Neutrophils 74.6 % (42.0-75.0); Hemoglobin 14.6 g/dL (14.0-18.0); Mean Corpuscular HGB CONC 32.5 g/dL (32.0-36.0); Mean Corpuscular Hemoglobin 28.9 pg (27.0-31.0); Mean Platelet Volume 6.5 fL (7.4-10.4); Platelet Count 379 thou/uL (130-400); RBC Distribution Width 12.7 % (11.5-14.5); Red Blood Cell (RBC) Count 5.04 mill/uL (4.70-6.10); White Blood Cell (WBC) Count 8.8 thou/uL (4.8-10.8)
[2018-07-13 17:26] LABS: ALT (SGPT) 28 U/L (8-55); AST (SGOT) 23 U/L (5-34); Albumin 3.7 g/dL (3.4-4.8); Alkaline Phosphatase 122 U/L (40-150); Anion Gap 13 mmol/L (10-20); BUN (Urea Nitrogen) 15 mg/dL (8.4-25.7); Bilirubin, Total 0.5 mg/dL (0.2-1.2); Calc. Creatinine Clearance 0 mL/min (70-130); Calcium 9.6 mg/dL (7.8-10.44); Carbon Dioxide 25 mmol/L (23-31); Chloride 101 mmol/L (98-107); Estimated GFR-MDRD 90; Globulin 4.6 g/dL (2.4-3.5); Glucose 167 mg/dL (80-115); Potassium 4.8 mmol/L (3.5-5.1); Protein, Total 8.3 g/dL (5.8-8.1); Sodium 134 mmol/L (136-145)
--- NOTE | 2018-07-13 17:36 | RAD ---
RADIOGRAPH RIGHT FOOT 3 VIEWS: 07/13/18 at 5:10 p.m. HISTORY: 63-year-old male with right foot wound and infection. Pain. COMPARISON: None. FINDINGS: There is diffuse soft tissue swelling of the ankle and especially of the dorsum and lateral aspect of the foot. There has been amputation at the mid to proximal diaphysis of the fifth metatarsal, where there are multiple partially corticated bone fragments. There is what appears to be a nonacute minima lly displaced, mildly comminuted fracture at the base of the fifth metatarsal, with incomplete healin g. Perhaps this is subacute. The bones here are locally demineralized, questionably permeative. There is irregular periosteal elevation throughout the diaphysis of the fourth metatarsal, especially susy rely thickened at the mid shaft. Soft tissue surface irregularity and lucency may represent ulcers, l ateral to the base of the fifth metatarsal. IMPRESSION: 1. Amputation at mid shaft of fifth metatarsal. 2. Nonacute, perhaps subacute, comminuted (pathologic?) fracture with mild displacement at base of fifth metatarsal. 3. Periostitis of fourth metatarsal, which could either represent healing late subacute-early ch ronic healing fracture, or osteomyelitis. 4. Severe soft tissue edema. 5. Soft tissue wound lateral to base of fifth metatarsal. 6. Questionable osteomyelitis involving the base of the fifth metatarsal (pathologic fracture?). POS: LIZETH
[2018-07-13 17:42] LABS: Bilirubin Small (Negative); Blood, Urine Negative (Negative); Clarity CLOUDY (Clear); Glucose, Urine (Dipstick) 100 mg/dL (Negative); Leukocyte Moderate (Negative); Nitrite Negative (Negative); Protein, Urine (Dipstick) Trace mg/dL (Neg-Trace); Specific Gravity, Urine 1.023 (1.002-1.036)
[2018-07-13 17:45] LABS: Bacteria/HPF None Seen HPF (None Seen)
[2018-07-13 17:46] LABS: Pathc Cast-AUWi Flag 4.65 (0-2.49); Yeast-AUWi Flag 272.3 (0-25.0)
[2018-07-13 18:00] LABS: Hyaline Casts/LPF 4-6 HYALINE CAST LPF (0-3 Hyaline); Other Casts/LPF None Seen LPF (0-3 Hyaline); RBC/HPF 0-3 HPF (0-3)
[2018-07-13 18:01] LABS: Yeast-All Forms 2+ HPF (None Seen)
[2018-07-13] MEDS ORDERED: Lorazepam 2 MG/ML VIAL SLOW IVP PRN (18:03)
[2018-07-13] MEDS ORDERED: Ondansetron ODT 4 MG TAB PO PRN (18:03)
[2018-07-13] MEDS ORDERED: HumaLOG 300 UNITS/3 ML VIAL SC PRN (18:03)
[2018-07-13] MEDS ORDERED: Dextrose 5% in Water 1,000 ML IV PRN (18:03)
[2018-07-13] MEDS ORDERED: hydrALAZINE 20 MG/ML VIAL SLOW IVP PRN (18:03)
[2018-07-13] MEDS ORDERED: Dextrose 50% Abboject 50 ML SYRINGE SLOW IVP PRN (18:03)
[2018-07-13] MEDS ORDERED: Acetaminophen 500 MG TAB ONE (19:30)
[2018-07-13] MEDS ORDERED: Amitriptyline HCl 25 MG TAB PO SCH (21:00)
[2018-07-13] MEDS ORDERED: Famotidine 20 MG TAB PO SCH (21:00)
[2018-07-13] MEDS ORDERED: Vancomycin HCl 1.25 GM in Sodium Chloride 0.9% 250 ML 250 ML IVPB SCH (21:00)
[2018-07-13] MEDS ORDERED: Piperacillin/Tazobactam 4.5 GM in Sodium Chloride 0.9% 100 ML IVPB SCH (23:59)
[2018-07-14] MEDS ORDERED: Sodium Chloride 0.9% 1,000 ML IV SCH (08:00)
[2018-07-14] MEDS ORDERED: Polyethylene Glycol 3350 17 GM Packet PO SCH (09:00)
[2018-07-14] MEDS ORDERED: Lisinopril/Hydrochlorothiazide 20 mg/12.5 mg Tablet PO SCH (09:00)
[2018-07-14] MEDS ORDERED: Amlodipine 10 MG TAB PO SCH (09:00)
[2018-07-14] MEDS ORDERED: Saccharomyces boulardii 250 MG CAP PO SCH (09:00)
== END 2018-07-13 19:37 | disposition left against medical advice (07) ==
LOC: ERS 15:48
DX: E11.69 Type 2 diabetes mellitus with other specified complication (principal); M86.9 Osteomyelitis, unspecified; E78.5 Hyperlipidemia, unspecified; F32.9 Major depressive disorder, single episode, unspecified
CPT/HCPCS: 36415; 81003; 81015; 83605; 87070; 87086; 87205; J1956

== ENCOUNTER 2018-07-13 23:35 | Inpatient (IN) | payer OTHER ==
--- NOTE | 2018-07-14 01:31 | HP ---
HISTORY OF PRESENT ILLNESS: Bhavin Valles is a 63-year-old male patient who is morbidly obese, lives in recently and lives alone, but has a friend with him in the emergency room. He is di abetic and hypertensive on insulin. He was admitted to the medical service recently and on 8, patient underwent amputation of the right fifth toe and metatarsal, and debridement of the cuboid metatarsal resection as he had a very proximal foot infection. The patient was seen in wound care on 07/07/2018 and had a foul smelling odor to his foot. He was started on oral antibiotics. Wound VAC continued. He reports to the emergency room tonight with a fever to over 101 degrees, white count 8 , hemoglobin 14, BUN 15, creatinine 0.86, sodium 134. His right foot wound VAC is removed. His late ral right foot wound tracks about 6 cm towards the heel and the plantar aspect of the foot and toward s the lateral aspect of the foot. Cultures were obtained. He has palpable pedal pulses. Recommenda tions that he undergo right below knee amputation as we have tried to salvage this, but extends more proximally into the cuboid bones and ankle bones. In my opinion, this will all heal. I have told hi m that we could do an aggressive washout and debridement, but this is extended more proximally. Then I can treat surgically and that with these fevers and the repeat x-rays demonstrating progressive os teomyelitis, I would recommend [id number]-[id number] amputation. I have described the process to him. Ernesto ab transition to home 6-8 weeks of healing before prosthesis. The patient has severe edema of the [facility] foot medially and ankle. Blood cultures previously have been negative. Wound cultures have not been obtained in the past. The patient wants to go home to take care of his dogs care his home and rigo frances returned for admission. He is receiving Levaquin that Dr. Morgan has ordered for him. ALLERGIES: None. TOBACCO: None. ALCOHOL: Rarely. MEDICATIONS: Sertraline 25 mg a day, Florastor 250 mg a day, minocycline 100 mg b.i.d., lisinopril/h ydrochlorothiazide daily, insulin 90 units p.m., Augmentin q.12 hours 500 mg, amlodipine besylate 10 mg daily, amitriptyline 25 mg at bedtime, he has been on insulin 90 units subcu every evening. PAST SURGICAL HISTORY: Surgery on his right foot a year ago, recent surgery, amputation of right sma ll toe and metatarsal. PAST MEDICAL HISTORY: Diabetes mellitus insulin dependent, morbid obesity, hypertension. PHYSICAL EXAMINATION: VITAL SIGNS: 5 foot 10 inches, 250 pounds, 35 BMI, 101.5 degrees, heart rate 90, blood pressure 155/ 90. HEAD, EYES, EARS, NOSE, AND THROAT: Unremarkable. LUNGS: Clear to auscultation. CARDIAC: Regular rate and rhythm without murmur or gallop. ABDOMEN: Soft, obese. EXTREMITIES: Palpable femoral, popliteal pedal pulses. Edema to right foot, foul smelling wound, la teral right foot. I can place a Q-tip. They probe 6 cm from the lateral right foot junction proxima l third mid third tracks posteriorly and medially 6 cm plantar. There are irregular bone edges on pa lpation, it is very foul smelling . ASSESSMENT AND PLAN: 1. Diabetic foot infection with persistent osteomyelitis of the foot. Despite aggressive attempts t o salvage his leg, would recommend right [id number] amputation. He is considering this. We will plan this tomorrow if he agrees. If he insists on not doing an amputation, I could wash this out, b ut I do not think this will heal and he will need a nkgkk-sgq-axma amputation. He will need rehabili tation postoperatively and medical reimbursement specialist will need to help him ready his home for future post-amputation condition. 2. Diabetes mellitus, insulin-dependent. 3. Hypertension. 4. Medical consult to manage his medical problems.
[2018-07-14] MEDS ORDERED: Dextrose 5% in Water 1,000 ML IV PRN (02:32)
[2018-07-14] MEDS ORDERED: Dextrose 50% Abboject 50 ML SYRINGE SLOW IVP PRN (02:32)
[2018-07-14] MEDS ORDERED: hydrALAZINE 20 MG/ML VIAL SLOW IVP PRN (02:33)
[2018-07-14] MEDS ORDERED: Ondansetron ODT 4 MG TAB PO PRN (02:34)
[2018-07-14] MEDS ORDERED: Lorazepam 2 MG/ML VIAL SLOW IVP PRN (02:34)
[2018-07-14] MEDS: Ketorolac Tromethamine 30 MG/ML VIAL IVP PRN (04:49)
[2018-07-14] MEDS: Sodium Chloride 0.9% 1,000 ML IV SCH ×3 (04:53→20:01)
[2018-07-14] MEDS ORDERED: Piperacillin/Tazobactam 4.5 GM in Sodium Chloride 0.9% 100 ML IVPB SCH (06:00)
--- NOTE | 2018-07-14 08:54 | ULT ---
PRELIMINARY REPORT/[facility]/EMERGENTY AFTER-HOURS PROCEDURE US Duplex Right Lower Extremity Veins CLINICAL HISTORY: 63 years old, male; Pain and signs and symptoms; Edema, localized; Lower extremity, right; Leg, lower ; Prior surgery; Surgery date: 1-6 months; Surgery type: Rt foot surgery; Patient HX: Rt foot wound, edema, fever TECHNIQUE: Real-time duplex ultrasound scan of the right lower extremity veins integrating B-mode two dimensiona l vascular structure, Doppler spectral analysis, color flow Doppler imaging and compression. COMPARISON: No relevant prior studies available. FINDINGS: Deep veins: Normal. No DVT in the visualized common femoral, femoral, proximal deep femoral or poplit eal veins. The veins demonstrate normal color flow, are normally compressible, with normal phasic allyson w and/or augmentation response. Superficial veins: Normal. No thrombus in the visualized great saphenous vein. Soft tissues: Moderate subcutaneous edema of the lower cavity. No popliteal cyst. IMPRESSION: No DVT. Thank you for allowing us to participate in the care of your patient. Dictated and Authenticated by: Bernard Bautista MD 07/14/2018 3:34 AM Central Time ([place] & [place]) FINAL REPORT VENOUS DOPPLER ULTRASOUND OF THE RIGHT LOWER EXTREMITY: Date: 07/14/18 FINDINGS/IMPRESSION: I agree with the preliminary report given by Joey. POS: LIZETH
[2018-07-14] MEDS: Piperacillin/Tazobactam 4.5 GM in Sodium Chloride 0.9% 100 ML IVPB SCH ×3 (09:09→20:13)
[2018-07-14] MEDS: Polyethylene Glycol 3350 17 GM Packet PO SCH (09:14)
[2018-07-14] MEDS: Lisinopril/Hydrochlorothiazide 20 mg/12.5 mg Tablet PO SCH (09:14)
[2018-07-14] MEDS: Amlodipine 10 MG TAB PO SCH (09:14)
[2018-07-14] MEDS: Saccharomyces boulardii 250 MG CAP PO SCH (09:14)
[2018-07-14] MEDS: Famotidine 20 MG TAB PO SCH ×3 (09:14→20:49)
[2018-07-14] MEDS ORDERED: Fentanyl 100 MCG/2 ML VIAL ONE ×3 (11:04→17:41)
[2018-07-14] MEDS ORDERED: Midazolam HCl 2 mg/2 ml Vial ONE (11:04)
[2018-07-14] MEDS ORDERED: Lidocaine 1% PF 5 ML VIAL ONE ×2 (11:05→15:27)
[2018-07-14] MEDS ORDERED: Bupivacaine HCl 0.5%/Epinephrine 1:200,000/PF 30 ml Vial ONE (15:04)
[2018-07-14] MEDS ORDERED: Glycopyrrolate 0.2 MG/ML 5 ML SYRINGE ONE (15:27)
[2018-07-14] MEDS ORDERED: Ondansetron HCl/PF 4 MG/2 ML Vial ONE (15:27)
[2018-07-14] MEDS ORDERED: ePHEDrine/0.9% NaCl/PF SYRINGE 50 mg/10 ml ONE (15:27)
[2018-07-14] MEDS ORDERED: PROPOFOL 200 MG/20 ML VIAL ONE (15:27)
[2018-07-14] MEDS ORDERED: PHENYLEPHRINE-NS 100 MCG/ML 10 ML SYRINGE ONE ×2 (15:27→16:59)
[2018-07-14] MEDS ORDERED: Promethazine HCl 25 MG/ML VIAL IM PRN ×2 (17:41→18:11)
[2018-07-14] MEDS ORDERED: Ondansetron HCl/PF 4 MG/2 ML Vial IVP PRN ×2 (17:41→18:11)
[2018-07-14] MEDS ORDERED: HYDROmorphone 2 MG/ML VIAL SLOW IVP PRN (17:41)
[2018-07-14] MEDS ORDERED: Meperidine HCl/PF 25 MG/ML VIAL SLOW IVP PRN (17:41)
[2018-07-14] MEDS ORDERED: Promethazine HCl 25 MG/ML VIAL SLOW IVP PRN (17:41)
[2018-07-14] MEDS ORDERED: HYDROmorphone 2 MG/ML VIAL ONE (17:55)
[2018-07-14] MEDS ORDERED: diphenhydrAMINE 25 MG CAP PO PRN (18:11)
[2018-07-14] MEDS ORDERED: diphenhydrAMINE 50 MG/ML VIAL IVP PRN (18:11)
[2018-07-14] MEDS ORDERED: fentaNYL Citrate/PF 2,000 MCG in Sodium Chloride 0.9% 60 ML IV PRN (18:11)
[2018-07-14] MEDS ORDERED: Zolpidem Tartrate 5 MG TAB PO PRN (18:11)
[2018-07-14] MEDS ORDERED: diphenhydrAMINE 50 MG/ML VIAL IM PRN (18:11)
[2018-07-14] MEDS ORDERED: Naloxone HCl 0.4 mg/ml Vial IV PRN (18:11)
[2018-07-14] MEDS ORDERED: Communication Order-Pharmacy FS SCH (18:15)
[2018-07-14] MEDS: Vancomycin HCl 1.25 GM in Sodium Chloride 0.9% 250 ML 250 ML IVPB SCH (18:24)
--- NOTE | 2018-07-14 20:11 | OP ---
DATE OF PROCEDURE: 07/14/2018 PREOPERATIVE DIAGNOSIS: Diabetic infection of right foot into the proximal foot with diabetic sepsis , abscess, osteomyelitis, nonhealing despite aggressive nonsurgical management. POSTOPERATIVE DIAGNOSIS: Diabetic infection of right foot into the proximal foot with diabetic sepsi s, abscess, osteomyelitis, nonhealing despite aggressive nonsurgical management. PROCEDURE: Right fbwdz-bqi-vapc amputation. SURGEON: Cortes Tillman MD ANESTHESIA: Regional, general. DESCRIPTION OF PROCEDURE: The patient was taken to the operating room, where under general anesthesi a and regional, the right lower extremity was prepared with ChloraPrep, draped in routine fashion. I ncision was made for BKA with a long posterior flap, carried down through skin, subcutaneous tissue, fascia. Muscle layers divided between with cautery. Vascular bundles were divided between clamps. Sciatic nerves divided between clamps and ligated with 2-0 silk ties. Tibia transected with the Gigl i saw, beveling anterior cephalad. I had to cut out some more of the tibia to facilitate skin approx imation using the power saw. Edges were smoothed with a rasp. Fibula resected proximally with a bon e cutters, an inch above the cut edge of the tibia. Wound was irrigated. Good hemostasis obtained w ith 2-0 Vicryl and cautery. Good hemostasis was noted. Wound was irrigated. Fascia was approximate d with interrupted sutures of vxjujv-xi-kidbm 0 Vicryl, skin with linda. Sterile dressing was appl ied.
[2018-07-14] MEDS: Amitriptyline HCl 25 MG TAB PO SCH ×2 (20:47→20:50)
[2018-07-14] MEDS: Enoxaparin Sodium 40 MG/0.4 ML SYRINGE SC SCH (20:47)
[2018-07-15] MEDS: Ketorolac Tromethamine 30 MG/ML VIAL IVP PRN ×2 (00:17→15:49)
[2018-07-15] MEDS: Piperacillin/Tazobactam 4.5 GM in Sodium Chloride 0.9% 100 ML IVPB SCH ×3 (02:21→14:10)
[2018-07-15] MEDS: Vancomycin HCl 1.25 GM in Sodium Chloride 0.9% 250 ML 250 ML IVPB SCH (04:21)
[2018-07-15] MEDS: HumaLOG 300 UNITS/3 ML VIAL SC PRN ×3 (06:33→18:19)
[2018-07-15 06:55] LABS: #Lymphocytes 1.1 thou/uL (1.20-3.40); #Neutrophils 8.1 thou/uL (1.40-6.50); %Basophils 0.5 % (0.0-1.0); %Eosinophils 0.2 % (0.0-10.0); %Monocytes 9.2 % (0.0-10.0); %Neutrophils 79.2 % (42.0-75.0); Hemoglobin 10.5 g/dL (14.0-18.0); Mean Corpuscular HGB CONC 31.5 g/dL (32.0-36.0); Mean Corpuscular Hemoglobin 28.3 pg (27.0-31.0); Mean Corpuscular Volume 89.8 fL (78.0-98.0); Mean Platelet Volume 6.6 fL (7.4-10.4); Platelet Count 320 thou/uL (130-400); RBC Distribution Width 12.5 % (11.5-14.5); White Blood Cell (WBC) Count 10.3 thou/uL (4.8-10.8)
[2018-07-15 07:01] LABS: Hemoglobin A1c 10.2 % (4.0-6.0)
[2018-07-15] MEDS: Polyethylene Glycol 3350 17 GM Packet PO SCH (08:05)
[2018-07-15] MEDS: Saccharomyces boulardii 250 MG CAP PO SCH (08:05)
[2018-07-15] MEDS: Amlodipine 10 MG TAB PO SCH (08:05)
[2018-07-15] MEDS: Famotidine 20 MG TAB PO SCH ×2 (08:05→20:47)
[2018-07-15] MEDS: Lisinopril/Hydrochlorothiazide 20 mg/12.5 mg Tablet PO SCH (08:06)
[2018-07-15] MEDS: Sodium Chloride 0.9% 1,000 ML IV SCH (12:04)
[2018-07-15] MEDS ORDERED: Sodium Chloride 0.9% 1,000 ML IV SCH (15:16)
[2018-07-15 15:45] LABS: Vancomycin, Trough 17.2 ug/mL
--- NOTE | 2018-07-15 17:38 | PRG ---
DATE OF SERVICE: 07/15/2018 SUBJECTIVE: Bhavin Valles is doing well today. Vital signs are stable. Blood counts are stable. Pa in control is good with DINING ROOM HELPER. OBJECTIVE: LUNGS: Clear to auscultation. CARDIAC: Regular rate and rhythm without murmur or gallop. ABDOMEN: Soft, nontender. EXTREMITIES: Stump dressing dry. ASSESSMENT: Right [id number]-dyjb-auftokhxiv. PLAN: Remove the dressing tomorrow and placement of a stump bi manager. Transfer to rehab tomorrow if accepted. Continue physical therapy, mobility. Diabetes control per medical. TKO IV fluids. We w ill discontinue his intravenous antibiotics.
[2018-07-15] MEDS: Enoxaparin Sodium 40 MG/0.4 ML SYRINGE SC SCH (20:47)
[2018-07-15] MEDS: Amitriptyline HCl 25 MG TAB PO SCH (20:47)
[2018-07-16] MEDS: HumaLOG 300 UNITS/3 ML VIAL SC PRN ×4 (01:14→16:56)
[2018-07-16] MEDS: Ketorolac Tromethamine 30 MG/ML VIAL IVP PRN ×2 (01:14→08:58)
[2018-07-16] MEDS: Amlodipine 10 MG TAB PO SCH (08:59)
[2018-07-16] MEDS: Polyethylene Glycol 3350 17 GM Packet PO SCH (08:59)
[2018-07-16] MEDS: Famotidine 20 MG TAB PO SCH ×2 (08:59→21:59)
[2018-07-16] MEDS: Triple Antibiotic Oint 1 GM Packet TOP SCH (09:00)
[2018-07-16] MEDS: Saccharomyces boulardii 250 MG CAP PO SCH (09:00)
[2018-07-16] MEDS: Lisinopril/Hydrochlorothiazide 20 mg/12.5 mg Tablet PO SCH (09:00)
[2018-07-16] MEDS ORDERED: traMADol HCl 50 MG TAB PO PRN (09:44)
[2018-07-16] MEDS ORDERED: HYDROcodone/Acetaminophen 5/325 mg Tablet PO PRN (09:44)
[2018-07-16] MEDS ORDERED: Acetaminophen 500 MG TAB PO PRN (09:44)
--- NOTE | 2018-07-16 10:13 | PRG ---
DATE OF SERVICE: 07/16/2018 SUBJECTIVE: Mr. Valles is doing well today. OBJECTIVE: VITAL SIGNS: Stable, afebrile. LUNGS: Clear to auscultation. CARDIAC: Regular rate and rhythm without murmur, rub, or gallop. ABDOMEN: Soft and nontender. Dressing is removed from his right BKA stump and is healthy without pr oblems. Orders have been given to wash the stump daily with soap and water, apply antibiotic ointment, Telfa, and stump clinical psychologist licensed. I have requested RN M[facility] ([facility]) and got consultation for stump s hrinker of right leg to wear at all times. Request that right knee be kept extended and avoid contin uous flexion by placing pillows or blankets beneath the BKA stump below the knee to promote the exten linda. Catrachita should be removed in 2 weeks at rehab or in my office. The patient is stable to trans edin to rehab today. We would prefer to use Tylenol, Motrin, and Ultram for pain relief and use hydro codone as a last resort. He has MiraLax ordered. Plan to transfer to the rehab today.
[2018-07-16] MEDS: HYDROcodone/Acetaminophen 5/325 mg Tablet PO PRN ×2 (10:21→14:31)
[2018-07-16] MEDS: traMADol HCl 50 MG TAB PO PRN ×2 (11:08→16:53)
--- NOTE | 2018-07-16 13:00 | DIS ---
PREOPERATIVE DIAGNOSES: Diabetic right foot infection, refractory to medical management, palpable pe dwayne pulses, no evidence of peripheral artery disease, insulin-dependent diabetes mellitus, morbid obe sity, hypertension. DISCHARGE MEDICATIONS: Norvasc 10 mg a day; Lovenox 40 mg subcu daily to be continued at rehabilitat ion, discontinue once discharged home; Pepcid 20 mg b.i.d.; sliding scale insulin; pain medications, Tylenol 1000 mg p.o. q.i.d., Motrin 600 mg p.o. q.i.d. p.r.n. pain, Ultram 50 mg 1-2 p.o. p.r.n. pain , as a last resort [place] 5/325 one to two p.o. q.i.d. p.r.n. pain; MiraLax daily; Ambien 5 mg at bedt miriam. Resume home medications, sertraline 25 mg a day, insulin 90 units subcutaneous p.m., amitriptyl ine 25 mg at bedtime. HISTORY: This is a 63-year-old diabetic, obese, 5 feet 10, 245 pounds, 35 BMI, had developed a diabe tic foot infection, extending to his proximal ankle. It was felt this probably would not heal, but a ggressive intravenous antibiotics and then oral antibiotics prolonged use and wound care performed al nataliia with wound VAC. The wound seemed to be healing, but there was a deep infection developed to the heel. He developed fever, presented to the Wound Care and was admitted from there with cultures. He was treated with vancomycin. Cultures from the foot revealed Klebsiella pneumoniae. One of two blo od cultures probably contaminant-coagulase negative staph. He was given vancomycin and Zosyn for 48 hours and then was discontinued 24 hours after amputation. Plan is to transfer to rehabilitation. H zev will have the linda removed in 2 weeks. He will need to have Mastisol Steri-Strips applied after linda removed. He should try to keep his knee extended by to avoid contracture.
[2018-07-16] MEDS: Ibuprofen 600 MG TAB PO PRN (16:53)
[2018-07-16] MEDS: Enoxaparin Sodium 40 MG/0.4 ML SYRINGE SC SCH (21:59)
[2018-07-16] MEDS: Amitriptyline HCl 25 MG TAB PO SCH (21:59)
[2018-07-17] MEDS: HumaLOG 300 UNITS/3 ML VIAL SC PRN ×4 (01:24→20:15)
[2018-07-17] MEDS: HYDROcodone/Acetaminophen 5/325 mg Tablet PO PRN ×3 (08:11→20:16)
[2018-07-17] MEDS: Saccharomyces boulardii 250 MG CAP PO SCH (08:12)
[2018-07-17] MEDS: Famotidine 20 MG TAB PO SCH ×2 (08:12→20:17)
[2018-07-17] MEDS: Polyethylene Glycol 3350 17 GM Packet PO SCH (08:13)
[2018-07-17] MEDS: Triple Antibiotic Oint 1 GM Packet TOP SCH (08:13)
[2018-07-17] MEDS: Lisinopril/Hydrochlorothiazide 20 mg/12.5 mg Tablet PO SCH (08:20)
[2018-07-17] MEDS: Amlodipine 10 MG TAB PO SCH (08:20)
[2018-07-17] MEDS ORDERED: Insulin Glargine 10 UNITS in Pre-Filled Syringe SC SCH (10:45)
[2018-07-17] MEDS ORDERED: Hydrocortisone Sod Succ/PF 100 mg/2 ml Vial IVP SCH (10:45)
[2018-07-17 11:24] LABS: #Basophils 0.1 thou/uL (0.0-0.2); #Eosinphils 0.4 thou/uL (0.0-0.7); #Lymphocytes 1.5 thou/uL (1.20-3.40); #Monocytes 0.8 thou/uL (0.11-0.59); #Neutrophils 6.6 thou/uL (1.40-6.50); %Basophils 0.8 % (0.0-1.0); %Eosinophils 4.7 % (0.0-10.0); %Lymphocytes 15.9 % (21.0-51.0); %Monocytes 8.2 % (0.0-10.0); %Neutrophils 70.3 % (42.0-75.0); Mean Corpuscular HGB CONC 32.2 g/dL (32.0-36.0); Mean Corpuscular Hemoglobin 28.7 pg (27.0-31.0); Mean Corpuscular Volume 89.3 fL (78.0-98.0); Mean Platelet Volume 6.2 fL (7.4-10.4); Platelet Count 415 thou/uL (130-400); RBC Distribution Width 12.3 % (11.5-14.5); Red Blood Cell (RBC) Count 3.48 mill/uL (4.70-6.10); White Blood Cell (WBC) Count 9.4 thou/uL (4.8-10.8)
[2018-07-17 11:44] LABS: Anion Gap 9 mmol/L (10-20); BUN (Urea Nitrogen) 16 mg/dL (8.4-25.7); Calc. Creatinine Clearance 148 mL/min (70-130); Calcium 9.4 mg/dL (7.8-10.44); Carbon Dioxide 29 mmol/L (23-31); Chloride 101 mmol/L (98-107); Estimated GFR-MDRD Greater than 90; Glucose 232 mg/dL (80-115); Magnesium 1.8 mg/dL (1.6-2.6); Phosphorus 2.5 mg/dL (2.3-4.7); Potassium 3.7 mmol/L (3.5-5.1); Sodium 135 mmol/L (136-145)
[2018-07-17] MEDS ORDERED: Labetalol HCl 100 MG/20 ML VIAL ONE (13:08)
[2018-07-17] MEDS: Gabapentin 300 MG CAP PO SCH ×2 (14:40→20:17)
--- NOTE | 2018-07-17 16:07 | PRG ---
DATE OF SERVICE: 07/17/2018 SUBJECTIVE: Mr. Valles is a 63-year-old man who is postoperative day #3 status post right below-the-k nee amputation. The patient reports adequate pain control currently. He occasionally experiences ph antom pain to his amputation site. He tolerated diet, having normal bowel and urinary function. PHYSICAL EXAMINATION: VITAL SIGNS: Currently includes blood pressure 110/71, pulse is 69, respiratory is 18, temperature 9 7.8 degrees Fahrenheit, oxygen saturation 96% on room air. HEART: Reveals regular rate and rhythm. LUNGS: Clear to auscultation bilaterally. Breathing is regular and unlabored. ABDOMEN: Soft, nontender, nondistended. EXTREMITIES: Right amputation stump is intact with a clean and dry dressing. NEUROLOGIC: Reveals no focal deficits present. LABORATORY DATA: Today includes a CBC with 9400 white blood cells, hemoglobin and hematocrit 10.0 an d 31.1 respectively. Platelet count is 415,000. Metabolic profile: Sodium 135, potassium 3.7, chlo ride is 101, bicarbonate is 29, BUN 16, creatinine 0.79, glucose is 232. Magnesium is 1.8, phosphoru s 2.5. IMPRESSION: 1. Postoperative day #3 status post right odzbr-mgp-dhbh amputation. 2. Acute hyperglycemia. 3. History of type 2 diabetes mellitus, currently on sliding scale insulin. PLAN: 1. Continue sliding scale insulin. We will add Lantus insulin 10 units daily. 2. Continue to increase activity per physical and occupational therapy. The patient has been accept ed for inpatient rehabilitation, pending insurance authorization.
[2018-07-17] MEDS: Amitriptyline HCl 25 MG TAB PO SCH (20:18)
[2018-07-17] MEDS: Enoxaparin Sodium 40 MG/0.4 ML SYRINGE SC SCH (20:18)
[2018-07-18] MEDS: HumaLOG 300 UNITS/3 ML VIAL SC PRN ×3 (00:50→20:06)
[2018-07-18] MEDS: HYDROcodone/Acetaminophen 5/325 mg Tablet PO PRN ×3 (04:32→18:31)
[2018-07-18 06:04] LABS: Anion Gap 11 mmol/L (10-20); BUN (Urea Nitrogen) 13 mg/dL (8.4-25.7); Calc. Creatinine Clearance 159 mL/min (70-130); Calcium 9.1 mg/dL (7.8-10.44); Carbon Dioxide 27 mmol/L (23-31); Chloride 102 mmol/L (98-107); Estimated GFR-MDRD Greater than 90; Glucose 205 mg/dL (80-115); Magnesium 1.7 mg/dL (1.6-2.6); Phosphorus 2.5 mg/dL (2.3-4.7); Potassium 3.9 mmol/L (3.5-5.1); Sodium 136 mmol/L (136-145)
[2018-07-18] MEDS ORDERED: Insulin Glargine 10 UNITS in Pre-Filled Syringe SC SCH (09:00)
[2018-07-18] MEDS: Saccharomyces boulardii 250 MG CAP PO SCH (09:41)
[2018-07-18] MEDS: Triple Antibiotic Oint 1 GM Packet TOP SCH (09:41)
[2018-07-18] MEDS: Gabapentin 300 MG CAP PO SCH ×3 (09:41→20:08)
[2018-07-18] MEDS: Polyethylene Glycol 3350 17 GM Packet PO SCH (09:42)
[2018-07-18] MEDS: Famotidine 20 MG TAB PO SCH ×2 (09:42→20:09)
[2018-07-18] MEDS: Insulin Glargine 10 UNITS in Pre-Filled Syringe SC SCH (09:42)
[2018-07-18] MEDS: Ibuprofen 600 MG TAB PO PRN (09:45)
[2018-07-18] MEDS: Amlodipine 10 MG TAB PO SCH (15:18)
[2018-07-18] MEDS: Lisinopril/Hydrochlorothiazide 20 mg/12.5 mg Tablet PO SCH (15:18)
--- NOTE | 2018-07-18 18:36 | PRG ---
DATE OF SERVICE: 07/17/2018 SUBJECTIVE: The patient is postop day #4 status post right fmtqq-gih-ncij amputation. The patient h ad no issues overnight. He states that his pain is controlled. He is tolerating a diet. His bowel function has returned. The patient has currently been accepted to inpatient rehabilitation, but is a waiting insurance authorization. PHYSICAL EXAMINATION: VITAL SIGNS: Temperature is 98.0, heart rate 71, blood pressure 100/57, respirations 16, oxygen satu ration is 93% on 1 liter via nasal cannula. GENERAL: The patient is resting comfortably in bed. He is awake, alert, and oriented x3. HEENT: Unremarkable. LUNGS: Clear to auscultation with good inspiratory and expiratory effort. HEART: Regular rate and rhythm. ABDOMEN: Soft, flat, nontender with active bowel sounds. EXTREMITIES: Right stump dressing is clean, dry, and intact. LABORATORY DATA AND IMAGING DATA: There are no labs or radiographs to review this morning. ASSESSMENT AND PLAN: 1. Status post right ueotm-wma-mscl amputation. 2. Hyperglycemia, resolving. Plan will be to continue his sliding scale. Yesterday, Lantus 10 units daily added to his regimen. Otherwise, continue physical and occupational therapy and await final placement decision.
[2018-07-18] MEDS: Amitriptyline HCl 25 MG TAB PO SCH (20:08)
[2018-07-18] MEDS: Enoxaparin Sodium 40 MG/0.4 ML SYRINGE SC SCH (20:09)
[2018-07-19] MEDS: HumaLOG 300 UNITS/3 ML VIAL SC PRN ×5 (01:06→21:42)
[2018-07-19] MEDS: HYDROcodone/Acetaminophen 5/325 mg Tablet PO PRN ×2 (02:35→07:17)
[2018-07-19] MEDS: traMADol HCl 50 MG TAB PO PRN ×3 (03:41→21:41)
[2018-07-19] MEDS: Lisinopril/Hydrochlorothiazide 20 mg/12.5 mg Tablet PO SCH (09:36)
[2018-07-19] MEDS: Gabapentin 300 MG CAP PO SCH ×3 (09:36→21:40)
[2018-07-19] MEDS: Famotidine 20 MG TAB PO SCH ×2 (09:36→21:40)
[2018-07-19] MEDS: Amlodipine 10 MG TAB PO SCH (09:36)
[2018-07-19] MEDS: Insulin Glargine 10 UNITS in Pre-Filled Syringe SC SCH (09:37)
[2018-07-19] MEDS: Saccharomyces boulardii 250 MG CAP PO SCH (09:37)
[2018-07-19] MEDS: Triple Antibiotic Oint 1 GM Packet TOP SCH (09:37)
[2018-07-19] MEDS: Polyethylene Glycol 3350 17 GM Packet PO SCH (09:37)
[2018-07-19] MEDS: Ibuprofen 600 MG TAB PO PRN ×2 (09:40→21:41)
[2018-07-19] MEDS ORDERED: Labetalol HCl 100 MG/20 ML VIAL ONE (18:01)
[2018-07-19] MEDS ORDERED: Dextrose 5% in Water 1,000 ML IV PRN (18:24)
[2018-07-19] MEDS ORDERED: Dextrose 50% Abboject 50 ML SYRINGE SLOW IVP PRN (18:24)
--- NOTE | 2018-07-19 18:26 | PDOC.EVN ---
Event Note - Event Note Event Note: Pt seen and examined, please see dictated consult note. DM2: increase Lantus to 90 QPM, on 92 at home. increase SSI to aggressive. HTN: controlled DFI: failed wound care and agressive abx, s/p BKA. post op care per Dr Tillman to rehab when arranged
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
--- NOTE | 2018-07-19 21:05 | PRG ---
DATE OF SERVICE: 07/19/2018 SUBJECTIVE: Mr. Valles is doing well. OBJECTIVE: VITAL SIGNS: 98.2, 83, 106/64. LUNGS: Clear to auscultation. CARDIAC: Regular rate and rhythm without murmur or gallop. ABDOMEN: Soft, nontender. I had asked for a hospitalist consult and I did not see notes they have seen him. Accu-Cheks are 140 to 294. He is awaiting insurance approval to go to rehabilitation. He is ready for discharge to re habilitation.
[2018-07-19] MEDS: Enoxaparin Sodium 40 MG/0.4 ML SYRINGE SC SCH (21:39)
[2018-07-19] MEDS: Amitriptyline HCl 25 MG TAB PO SCH (21:39)
[2018-07-19] MEDS: Insulin Glargine 90 UNITS in Pre-Filled Syringe 1 EACH SC SCH (21:40)
--- NOTE | 2018-07-20 07:42 | PRG ---
DATE OF SERVICE: 07/20/2018 PHYSICAL EXAMINATION: VITAL SIGNS: Temperature 97.2 degrees, 66, 16, 97/57. LUNGS: Clear to auscultation. CARDIAC: Regular rate and rhythm without murmur or gallop. ABDOMEN: Soft. EXTREMITIES: BKA stump looks good. LABORATORY: White count 9, hemoglobin 10. Accu-Cheks 93 to 245. I did talk to medical, who saw him yesterday. Dr. Huitron saw him and adjusted his insulin to a more appropriate coverage. We are awaiting transfer to rehab and he is stable for transfer to [facility] at any time.
[2018-07-20] MEDS: Insulin Glargine 10 UNITS in Pre-Filled Syringe SC SCH (09:16)
[2018-07-20] MEDS: HYDROcodone/Acetaminophen 5/325 mg Tablet PO PRN ×2 (09:16→20:50)
[2018-07-20] MEDS: Triple Antibiotic Oint 1 GM Packet TOP SCH (09:18)
[2018-07-20] MEDS: Gabapentin 300 MG CAP PO SCH ×3 (09:18→20:49)
[2018-07-20] MEDS: Saccharomyces boulardii 250 MG CAP PO SCH (09:18)
[2018-07-20] MEDS: Amlodipine 10 MG TAB PO SCH (09:18)
[2018-07-20] MEDS: Lisinopril/Hydrochlorothiazide 20 mg/12.5 mg Tablet PO SCH (09:18)
[2018-07-20] MEDS: Famotidine 20 MG TAB PO SCH ×2 (09:18→20:49)
[2018-07-20] MEDS: Polyethylene Glycol 3350 17 GM Packet PO SCH (09:19)
[2018-07-20] MEDS: HumaLOG 300 UNITS/3 ML VIAL SC PRN ×3 (13:13→22:29)
--- NOTE | 2018-07-20 13:30 | PDOC.PN ---
- Subjective Encounter Start Date: 07/20/18 Encounter Start Time: 09:55 feeling okay this AM, sugars better. chey abx without itching or rash No F/C, no N/V/D/C, no CP or SOB, no acute overnight events, no new complaints All systems reviewed and neg except as stated above - Objective MAR Reviewed: Yes Vital Signs & Weight: Vital Signs (12 hours) Temp Pulse Resp BP BP Pulse Ox 07/20/18 11:15 98 F 73 18 111/67 91 L 07/20/18 09:18 77 07/20/18 08:00 91 L 07/20/18 07:12 97.8 F 77 18 123/71 91 L 07/20/18 04:00 97.2 F L 66 16 99/57 L 93 L Weight Weight 245 lb I&O: 07/19/18 07/20/18 07/21/18 06:59 06:59 06:59 Intake Total 880 Output Total 550 Balance 330 Result Diagrams: 07/17/18 11:09 07/18/18 05:01 Additional Labs: Accuchecks 07/20/18 07/20/18 07/19/18 11:30 05:55 21:30 POC Glucose 210 H 93 245 H 07/19/18 15:50 POC Glucose 196 H Phys Exam - Physical Examination Constitutional: NAD HEENT: PERRLA, moist MMs, sclera anicteric, oral pharynx no lesions Neck: no nodes, no JVD, supple, full ROM Respiratory: no wheezing, no rales, no rhonchi, clear to auscultation bilateral Cardiovascular: RRR, no rub Gastrointestinal: soft, non-tender, no distention, positive bowel sounds Musculoskeletal: edema present to LLe, Right BKA stump in crtts Neurological: non-focal, normal sensation, moves all 4 limbs Lymphatic: no nodes Psychiatric: normal affect, A&O x 3 Skin: no rash, normal turgor, cap refill <2 seconds Dx/Plan (1) Diabetes type 2, uncontrolled Code(s): E11.65 - TYPE 2 DIABETES MELLITUS WITH HYPERGLYCEMIA Status: Chronic Qualifiers: Glycemic state: with hyperglycemia Qualified Code(s): E11.65 - Type 2 diabetes mellitus with hyperglycemia (2) Hyperlipidemia Code(s): E78.5 - HYPERLIPIDEMIA, UNSPECIFIED Status: Chronic Qualifiers: Hyperlipidemia type: unspecified Qualified Code(s): E78.5 - Hyperlipidemia , unspecified (3) Hypertension Code(s): I10 - ESSENTIAL (PRIMARY) HYPERTENSION Status: Chronic Qualifiers: Hypertension type: essential hypertension Qualified Code(s): I10 - Essential (primary) hypertension (4) Obesity (BMI 30-39.9) Code(s): E66.9 - OBESITY, UNSPECIFIED Status: Chronic (5) Status post below knee amputation of right lower extremity Code(s): Z89.511 - ACQUIRED ABSENCE OF RIGHT LEG BELOW KNEE Status: Acute - Plan cont current plan of care, PT/OT, social services aide * . watch glucose and adjust as needed
[2018-07-20] MEDS: Enoxaparin Sodium 40 MG/0.4 ML SYRINGE SC SCH (20:49)
[2018-07-20] MEDS: Amitriptyline HCl 25 MG TAB PO SCH (20:49)
[2018-07-20] MEDS: Insulin Glargine 90 UNITS in Pre-Filled Syringe 1 EACH SC SCH (22:29)
[2018-07-21] MEDS: Polyethylene Glycol 3350 17 GM Packet PO SCH (09:29)
[2018-07-21] MEDS: Amlodipine 10 MG TAB PO SCH (09:30)
[2018-07-21] MEDS: Saccharomyces boulardii 250 MG CAP PO SCH (09:30)
[2018-07-21] MEDS: Gabapentin 300 MG CAP PO SCH ×2 (09:30→16:34)
[2018-07-21] MEDS: Triple Antibiotic Oint 1 GM Packet TOP SCH (09:30)
[2018-07-21] MEDS: Famotidine 20 MG TAB PO SCH (09:30)
[2018-07-21] MEDS: Lisinopril/Hydrochlorothiazide 20 mg/12.5 mg Tablet PO SCH (09:31)
[2018-07-21] MEDS: HYDROcodone/Acetaminophen 5/325 mg Tablet PO PRN (09:53)
[2018-07-21] MEDS ORDERED: HumaLOG 300 UNITS/3 ML VIAL SC SCH (11:30)
--- NOTE | 2018-07-21 11:56 | PRG ---
DATE OF SERVICE: 07/21/2018 Bhavin Valles is doing well today. His stump is clean and dry, a stump district traffic chief is in place. PHYSICAL EXAMINATION: VITAL SIGNS: Heart rate 86, 98.1 degrees, 125/78. The patient working with therapy as far as mobility and walker ambulation status post right BKA. LUNGS: Clear to auscultation. CARDIAC: Regular rate and rhythm without murmur or gallop. ABDOMEN: Soft and nontender. ASSESSMENT AND PLAN: Awaiting Medicaid approval for rehab transfer.
[2018-07-21 15:57] VITALS: BP 128/79; TEMP 97.1
== END 2018-07-21 18:00 | DRG 617 ==
LOC: SJJU 23:35
PROVIDERS: ADMIT Specialist; ATTEND Specialist
PROC: 0Y6H0Z3 Detachment at Right Lower Leg, Low, Open Approach (ICD-10-PCS; principal; 2018-07-14)
DX: E11.65 Type 2 diabetes mellitus with hyperglycemia (principal); L02.611 Cutaneous abscess of right foot; M86.9 Osteomyelitis, unspecified; E11.621 Type 2 diabetes mellitus with foot ulcer; E66.9 Obesity, unspecified; Z68.30 Body mass index [BMI] 30.0-30.9, adult; I10 Essential (primary) hypertension; E78.5 Hyperlipidemia, unspecified; E11.40 Type 2 diabetes mellitus with diabetic neuropathy, unspecified; Z79.4 Long term (current) use of insulin
CPT/HCPCS: 36415; 36416; 80048; 80202; 81003; 81015; 82533; 83036; 83605; 83735; 84100; 85025; 87070; 87077; 87086; 87149; 87186; 87205; 88307; 96365; G8978-GP-CM; G8979-GP-CK; G8987-GO-CK; G8988-GO-CJ; J0670; J1170; J1650; J1720; J1885; J1956; J2001; J2250; J2405; J2543; J2704; J3010; J3370; J7050; L8440

== ENCOUNTER 2018-08-21 22:44 | Emergency (ER) | payer OTHER ==
--- NOTE | 2018-08-21 23:48 | RAD ---
TWO VIEWS RIGHT KNEE: 08/21/18 HISTORY: Wound infection. AP and lateral views of the right knee obtained. The patient has had a below knee amputation. No definite evidence of gas seen within the soft tissues. The distal aspect of the stump involving th e proximal tibia demonstrates no evidence of lucencies or permeative or destructive changes. IMPRESSION: Unremarkable radiograph of a below knee amputation. POS: ECHO
== END 2018-08-22 00:32 | disposition home or self-care (01) ==
LOC: ERS 22:44
DX: M96.89 Other intraoperative and postprocedural complications and disorders of the musculoskeletal system (principal); E11.9 Type 2 diabetes mellitus without complications; E78.5 Hyperlipidemia, unspecified; F32.9 Major depressive disorder, single episode, unspecified

== ENCOUNTER 2019-12-29 13:49 | Outpatient (CLI) | payer MEDICARE ==
--- NOTE | 2019-12-29 14:22 | RAD ---
RADIOGRAPH CHEST 2 VIEWS: DATE: 12/29/2019 HISTORY: 64-year-old male with dyspnea FINDINGS: Limited study because hypoinflated lungs and patient positioning. Again noted is the subsegmental ate lectasis at the base of left lower lobe on frontal view. Subsegmental atelectasis is also demonstrated at posterior base of right lower lobe. No interval change overall compared to 01/28/2019. There is no consolidation, pulmonary edema, pleural effusion, or pneumothorax. Cardiac shadow is obscured by the shallow inspiration. IMPRESSION: 1. Subsegmental atelectasis at the bilateral lung bases. 2. Otherwise no other acute pulmonary findings.
== END 2019-12-29 13:50 | disposition home or self-care (01) ==
LOC: RAD 13:49
PROVIDERS: ATTEND Internal Medicine Pulmonary Disease
DX: R06.00 Dyspnea, unspecified (principal); J98.11 Atelectasis
CPT/HCPCS: 71046

== ENCOUNTER 2020-06-21 18:30 | Emergency (ER) | payer MEDICARE ==
[2020-06-21] MEDS ORDERED: hydrOXYzine 25 MG TAB ONE (19:18)
--- NOTE | 2020-06-21 19:36 | ULT ---
Exam:Leftlower extremity venous ultrasound with Doppler HISTORY: Leftlower extremity swelling and erythema COMPARISON: None TECHNIQUE: Grayscale, color flow, Doppler imaging and spectral wave muscle performed left lower extre mity venous system FINDINGS: There is compressibility, presence of flow and augmentation in the common femoral vein, femoral vein and popliteal vein. There is flow in the posterior tibial vein. There is flow in the greater saphenous vein and profunda femoral vein Soft tissue edema in the calf. IMPRESSION: No thrombus in the left lower extremity deep venous system. Soft tissue edema in the left calf.
[2020-06-21 19:40] LABS: #Basophils 0.1 thou/uL (0.0-0.2); #Eosinphils 0.5 thou/uL (0.0-0.7); #Lymphocytes 1.4 thou/uL (1.20-3.40); #Monocytes 0.6 thou/uL (0.11-0.59); #Neutrophils 8.4 thou/uL (1.40-6.50); %Basophils 0.5 % (0.0-1.0); %Eosinophils 4.3 % (0.0-10.0); %Lymphocytes 12.6 % (21.0-51.0); %Monocytes 5.6 % (0.0-10.0); Hemoglobin 14.6 g/dL (14.0-18.0); Mean Corpuscular HGB CONC 31.5 g/dL (32.0-36.0); Mean Corpuscular Hemoglobin 29.3 pg (27.0-31.0); Mean Platelet Volume 7.1 fL (7.4-10.4); Platelet Count 309 thou/uL (130-400); RBC Distribution Width 12.4 % (11.5-14.5); Red Blood Cell (RBC) Count 4.99 mill/uL (4.70-6.10)
[2020-06-21 19:41] LABS: MDiff Complete? YES
[2020-06-21 19:53] LABS: ALT (SGPT) 25 U/L (8-55); AST (SGOT) 16 U/L (5-34); Albumin 3.8 g/dL (3.4-4.8); Alkaline Phosphatase 91 U/L (40-110); Anion Gap 8 mmol/L (10-20); BUN (Urea Nitrogen) 21 mg/dL (8.4-25.7); Bilirubin, Total 0.4 mg/dL (0.2-1.2); Calc. Creatinine Clearance 0 mL/min (70-130); Calcium 9.5 mg/dL (7.8-10.44); Carbon Dioxide 34 mmol/L (23-31); Chloride 99 mmol/L (98-107); Estimated GFR-MDRD Greater than 90; Globulin 3.6 g/dL (2.4-3.5); Glucose 318 mg/dL (80-115); Potassium 4.4 mmol/L (3.5-5.1); Protein, Total 7.4 g/dL (5.8-8.1); Sodium 137 mmol/L (136-145)
== END 2020-06-21 21:17 | disposition home or self-care (01) ==
LOC: ERS 18:30
DX: I87.2 Venous insufficiency (chronic) (peripheral) (principal); L30.4 Erythema intertrigo; E11.9 Type 2 diabetes mellitus without complications; E78.5 Hyperlipidemia, unspecified; J44.9 Chronic obstructive pulmonary disease, unspecified; I10 Essential (primary) hypertension; F32.9 Major depressive disorder, single episode, unspecified; Z87.891 Personal history of nicotine dependence; Z79.899 Other long term (current) drug therapy
CPT/HCPCS: 80053; 85025; 85652